=== PATIENT | male | born 1955 | race Caucasian/White ===

== ENCOUNTER 2017-08-13 06:53 | Day surgery (SDC) | payer BC ==
[~2017-08-13 06:53] MED LIST: Lactated Ringers 1,000 ML IV SCH; Lidocaine 1%/Sod Bicarbonate in NS 8.4% 1 ML Syringe IDERM PRN; Sodium Chloride 0.9% 10 ML Syringe FLUSH PRN
[2017-08-13] MEDS ORDERED: fentaNYL 100 MCG/2 ML SDV ONE (07:13)
[2017-08-13] MEDS ORDERED: Lidocaine 1% 4 ML ONE (07:13)
[2017-08-13] MEDS ORDERED: Propofol 200 MG/20 ML SDV ONE (07:13)
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
[2017-08-13] MEDS ORDERED: Ondansetron 4 MG/2 ML SDV ONE (08:18)
--- NOTE | 2017-08-13 08:33 | PCM.OPNOTE ---
- General Post-Op/Procedure Note Date of Surgery/Procedure: 08/13/17 Operative Procedure(s): Colonoscopy with ileal and colonic biopsies Findings: Nonspecific colitis with loss of mucosal integrity in the left colon and rectum. Grossly normal terminal ileum Pre Op Diagnosis: Chronic diarrhea Post-Op Diagnosis: 1. Nonspecific endoscopic colitis. 2. Anal tags. 3. Uncomplicated internal hemorrhoids Anesthesia Technique: MAC, Moderate Sedation Primary Surgeon: Benja Lala Pathology: Biopsies of the ileum, right colon, transverse colon, descending colon, sigmoid colon, and rectum. EBL in mLs: 0 Complications: None Condition: Good Free Text/Narrative:: After adequate IV sedation and analgesia was obtained with monitoring the patient was placed on his left side. Perianal inspection revealed an anal tag with internal hemorrhoids which were not prolapsed or complicated. A lubricated colonoscope was inserted into the rectum and advanced to the cecum without difficulty. The bowel preparation was adequate. The scope was introduced into the terminal ileum for about 20 cm. This structure looked normal. But given his history I took random biopsies for histopathologic evaluation. The cecum was grossly normal. There may have been some loss of mucosal integrity of the right colon and I biopsied this area as well. Similarly there were areas of mild mucosal edema in the transverse descending and sigmoid colons. This finding is consistent with mild colitis. There were no exudates, membranes, ulcers fissures or mass lesions throughout the entire examination.. The transverse descending and rectum were biopsied. The hemorrhoids were seen in the retroflexed view. Photographs were taken for the patient and the medical record.
[2017-08-13 10:37] VITALS: BP 155/82
--- NOTE | 2017-08-13 10:37 | PCM48HPAN ---
Post Anesthesia Note - EVALUATION WITHIN 48HRS OF ANESTHETIC Vital Signs in Normal Range: Yes Patient Participated in Evaluation: Yes Respiratory Function Stable: Yes Airway Patent: Yes Cardiovascular Function Stable: Yes Hydration Status Stable: Yes Pain Control Satisfactory: Yes Nausea and Vomiting Control Satisfactory: Yes Mental Status Recovered: Yes Pulse Rate: 65 Resp Rate: 16 Temperature: 36.6 C Blood Pressure: 155/82
== END 2017-08-13 08:54 | disposition home or self-care (01) ==
LOC: JD.SDS 06:53
PROVIDERS: ATTEND Surgery
DX: K52.832 Lymphocytic colitis (principal); K62.89 Other specified diseases of anus and rectum; K64.8 Other hemorrhoids; K64.4 Residual hemorrhoidal skin tags; Z88.0 Allergy status to penicillin; J30.1 Allergic rhinitis due to pollen
CPT/HCPCS: 45380; J2405; J3010; J7120; 00811; J2001; J2704

== ENCOUNTER 2017-11-03 11:03 | Emergency (ER) | payer BC ==
[2017-11-03 11:12] VITALS: BP 168/85
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
--- NOTE | 2017-11-03 12:05 | CR ---
Right wrist: Four views of the right wrist were obtained. Comparison: No prior wrist exam. Joint spaces are preserved. No fracture, dislocation or other bony abnormality is seen. Impression: 1. No abnormality is appreciated on right wrist exam. Diagnostic code #1
== END 2017-11-03 11:45 | disposition home or self-care (01) ==
LOC: JD.ED 11:03
DX: S63.501A Unspecified sprain of right wrist, initial encounter (principal); E78.00 Pure hypercholesterolemia, unspecified; Z88.0 Allergy status to penicillin; Z91.048 Other nonmedicinal substance allergy status; Z79.899 Other long term (current) drug therapy; V86.99XA Unspecified occupant of other special all-terrain or other off-road motor vehicle injured in nontraffic accident, initial encounter
CPT/HCPCS: 73110-26-RT; 73110-RT; 99283; 99284

== ENCOUNTER 2018-09-03 16:51 | Emergency (ER) | payer BC ==
[2018-09-03] MEDS ORDERED: Sodium Chloride 0.9% 10 ML Syringe FLUSH PRN (17:15)
[2018-09-03] MEDS ORDERED: Metoprolol Tartrate 50 MG Tab PO ONE (17:38)
[2018-09-03 18:54] VITALS: BP 154/81
--- NOTE | 2018-09-03 20:27 | EDM.PDOC ---
ED HPI GENERAL MEDICAL PROBLEM - General Chief Complaint: Chest Pain Stated Complaint: HIGH BLOOD PRESSURE,VISION ISSUE,CHEST PAIN Time Seen by Provider: 09/03/18 17:05 Source of Information: Reports: Patient, RN Notes Reviewed - History of Present Illness INITIAL COMMENTS - FREE TEXT/NARRATIVE: 62-year-old male has been having more frequent episodes of chest pain the past few days. She has been getting chest discomfort intermittently for several weeks or more, had about a 2-1/2 hour episode of anterior chest achiness and tightness at work this afternoon prior to coming in. Take a 325 mg Karen aspirin at work prior to coming and now the pain is gone he did not get short of breath with that. He has not been ill with cough fever or chills. He does have history of recently diagnosed hypertension and hyperlipidemia. He was just started on a statin this past week. He was started on hydrochlorothiazide 12.5 mg daily yesterday. No abdominal pain nausea or vomiting. States there was a burning discomfort anterior chest as well but "I never get heartburn". He did smoke many years ago. There is some history of heart disease in his family.. Chest Pain Score (Numeric/FACES): 2 - Related Data Allergies Allergy/AdvReac Type Severity Reaction Status Date / Time Penicillins Allergy Rash Verified 09/03/18 17:03 pollen extracts Allergy Cannot Verified 09/03/18 17:03 Remember Home Meds: Home Meds Fish Oil/[place]-3 Fatty Acids [Fish Oil 1,000 MG] 1 cap PO DAILY 08/12/17 [ History] Multivitamin [Multivitamins] 1 cap PO DAILY 08/12/17 [History] Metoprolol Tartrate 50 mg PO BID #60 tablet 09/03/18 [Rx] hydroCHLOROthiazide [Hydrochlorothiazide] 12.5 mg PO DAILY 09/03/18 [History] Past Medical History Cardiovascular History: Reports: High Cholesterol, Hypertension - Infectious Disease History Infectious Disease History: Reports: Chicken Pox, Mumps - Past Surgical History HEENT Surgical History: Reports: LASIK Other HEENT Surgeries/Procedures: L eye GI Surgical History: Reports: Appendectomy, Cholecystectomy Musculoskeletal Surgical History: Reports: Other (See Below) Other Musculoskeletal Surgeries/Procedures:: marta higgins Social & Family History - Family History Family Medical History: Noncontributory - Tobacco Use Smoking Status *Q: Former Smoker Used Tobacco, but Quit: Yes Month/Year Tobacco Last Used: 2010 - Caffeine Use Caffeine Use: Reports: Coffee - Recreational Drug Use Recreational Drug Use: No ED ROS GENERAL - Review of Systems Review Of Systems: See Below Constitutional: Denies: Fever, Chills, Diaphoresis HEENT: Denies: Sinus Problem, Throat Pain Respiratory: Denies: Shortness of Breath, Wheezing, Pleuritic Chest Pain Cardiovascular: Reports: Chest Pain (Now gone) GI/Abdominal: Denies: Abdominal Pain, Nausea, Vomiting Musculoskeletal: Denies: Neck Pain, Shoulder Pain, Arm Pain, Back Pain Skin: Reports: No Symptoms Neurological: Reports: No Symptoms ED EXAM, GENERAL - Physical Exam Exam: See Below General Appearance: Alert, No Apparent Distress Throat/Mouth: Normal Inspection Head: Atraumatic Neck: Supple Respiratory/Chest: No Respiratory Distress, Lungs Clear, Normal Breath Sounds, Chest Non-Tender Cardiovascular: Regular Rate, Rhythm GI/Abdominal: Soft, Non-Tender Extremities: Normal Inspection. No: Pedal Edema, Leg Pain, Increased Warmth, Redness Neurological: Alert, Oriented, No Motor/Sensory Deficits Skin Exam: Warm, Dry, Normal Color EKG INTERPRETATION EKG Date: 09/03/18 Rhythm: NSR Gordon: Normal P-Wave: Present QRS: Normal ST-T: Normal Course - Vital Signs Last Recorded V/S: Last Vital Signs Temp 96.6 F 09/03/18 16:58 Pulse 71 09/03/18 18:54 Resp 16 09/03/18 18:54 BP 154/81 H 09/03/18 18:54 Pulse Ox 96 09/03/18 18:54 - Orders/Labs/Meds Labs: Laboratory Tests 09/03/18 09/03/18 09/03/18 Range/Units 17:10 17:10 19:23 WBC 8.71 (4.23-9.07) K/mm3 RBC 5.05 (4.63-6.08) M/mm3 Hgb 15.2 (13.7-17.5) gm/L Hct 41.4 (40.1-51.0) % MCV 82.0 (79.0-92.2) fl MCH 30.1 (25.7-32.2) pg MCHC 36.7 H (32.2-35.5) g/dl RDW Std Deviation 38.5 (35.1-43.9) fL Plt Count 298 (163-337) K/mm3 MPV 10.5 (9.4-12.3) fl Neut % (Auto) 59.2 (34.0-67.9) % Lymph % (Auto) 27.4 (21.8-53.1) % [place] % (Auto) 9.8 (5.3-12.2) % Eos % (Auto) 2.6 (0.8-7.0) Baso % (Auto) 0.7 (0.1-1.2) % Neut # (Auto) 5.15 (1.78-5.38) K/mm3 Lymph # (Auto) 2.39 (1.32-3.57) K/mm3 [place] # (Auto) 0.85 H (0.30-0.82) K/mm3 Eos # (Auto) 0.23 (0.04-0.54) K/mm3 Baso # (Auto) 0.06 (0.01-0.08) K/mm3 Sodium 137 (136-145) mEq/L Potassium 3.7 (3.5-5.1) mEq/L Chloride 98 (98-107) mEq/L Carbon Dioxide 25 (21-32) mEq/L Anion Gap 17.7 H (5-15) BUN 14 (7-18) mg/dL Creatinine 1.0 (0.7-1.3) mg/dL Est Cr Clr Drug Dosing 81.91 mL/min Estimated GFR (MDRD) > 60 (>60) mL/min BUN/Creatinine Ratio 14.0 (14-18) Glucose 99 (80-115) mg/dL Calcium 9.3 (8.5-10.1) mg/dL Total Bilirubin 1.0 (0.2-1.0) mg/dL AST 26 (15-37) U/L ALT 66 H (16-63) U/L Alkaline Phosphatase 64 (46-116) U/L Troponin I < 0.017 < 0.017 (0.00-0.056) ng/mL Total Protein 8.0 (6.4-8.2) g/dl Albumin 4.5 (3.4-5.0) g/dl Globulin 3.5 gm/dL Albumin/Globulin Ratio 1.3 (1-2) Meds: Medications Discontinued Medications Generic Name Dose Route Start Last Admin Trade Name Claudia PRN Reason Stop Dose Admin Metoprolol Tartrate 50 mg 09/03/18 17:38 09/03/18 17:45 Lopressor PO 09/03/18 17:39 50 mg ONETIME ONE Administration Sodium Chloride 10 ml 09/03/18 17:15 09/03/18 17:18 Saline Flush FLUSH 10 ml ASDIRECTED PRN Administration Keep Vein Open - Re-Assessments/Exams Free Text/Narrative Re-Assessment/Exam: 09/05/18 07:32 Initial troponin was normal, chest x-ray other labs normal as well. Repeat troponin also did come back normal. His pressure did come down to the 150 range systolic after metoprolol 50 mg orally. I'm going to start him on metoprolol 50 mg twice a day in addition to the hydrochlorothiazide 12.5 started yesterday. He weighs 113 kg, he should be able to tolerate that. Eyes him to check his blood pressure and heart rate about twice daily, cutback in dosage if he does start running too low or having episodes of "too much dizziness". Also have scheduled him for cardiac stress test. He has been in sinus rhythm the whole time here in the ED with no ectopy. He is comfortable and agreeable with this plan. Discharge instructions as documented. Departure - Departure Time of Disposition: 20:25 Disposition: Home, Self-Care 01 Condition: Fair Clinical Impression: Atypical chest pain Hypertension Qualifiers: Hypertension type: essential hypertension Qualified Code(s): I10 - Essential ( primary) hypertension Prescriptions: Metoprolol Tartrate 50 mg PO BID #60 tablet Instructions: Nonspecific Chest Pain, [id number], Hypertension Referrals: Kristina Araujo PA-C [Primary Care Provider] - Forms: ED Department Discharge Additional Instructions: Take daily aspirin, either to 81 mg baby aspirin daily or 1 325 mg Karen aspirin daily. Continue the hydrochlorothiazide and statin medication previously prescribed. Metoprolol 50 mg twice a day for hypertension and also for accelerated chest pains. Cardiac stress test. Radiology will call you in the morning for a time to get that done. Follow-up with Kristina as needed. Continue to monitor your heart rate and blood pressure and keep a record for your medical providers. Return to ED as needed if symptoms worsening in any way.
--- NOTE | 2018-09-04 06:46 | CR ---
Chest: Portable view of the chest was obtained. Comparison: Prior chest x-ray of 08/25/18. Heart size and mediastinum are within normal limits. Lungs are clear with no acute parenchymal change. Bony structures are grossly intact. Impression: 1. Nothing acute is seen on portable chest x-ray. Diagnostic code #1
== END 2018-09-03 20:45 | disposition home or self-care (01) ==
LOC: JD.ED 16:51
DX: R07.89 Other chest pain (principal); E78.00 Pure hypercholesterolemia, unspecified; I10 Essential (primary) hypertension; Z87.891 Personal history of nicotine dependence; Z88.0 Allergy status to penicillin; Z79.899 Other long term (current) drug therapy
CPT/HCPCS: 36415; 71045; 80053; 84484; 85025; 93005; 99285; A9270; 93010; 99284

== ENCOUNTER 2020-03-25 02:16 | Emergency (ER) | payer MEDICARE, OTHER ==
[2020-03-25 02:28] VITALS: BP 182/70; PULSE 106
--- NOTE | 2020-03-25 02:43 | EDM.PDOC ---
ED HPI GENERAL MEDICAL PROBLEM - General Chief Complaint: Respiratory Problem Stated Complaint: SOB/CHEST CONGESTION Time Seen by Provider: 03/25/20 02:33 - History of Present Illness INITIAL COMMENTS - FREE TEXT/NARRATIVE: 64-year-old male presents the emergency room with shortness of breath. Patient has had on and off shortness of breath for the last couple of weeks. He is also had a lot of nasal congestion. Tonight his shortness of breath really got bad over the last 6 hours. Patient denies any chest pain, however he said some pressure. Patient is not aware of any sick exposures. He has not had any nausea vomiting or diarrhea. - Related Data Allergies Allergy/AdvReac Type Severity Reaction Status Date / Time Penicillins Allergy Rash Verified 03/25/20 02:28 pollen extracts Allergy Cannot Verified 03/25/20 02:28 Remember Home Meds: Home Meds Fish Oil/[place]-3 Fatty Acids [Fish Oil 1,000 MG] 1 cap PO DAILY 08/12/17 [History] Multivitamin [Multivitamins] 1 cap PO DAILY 08/12/17 [History] Metoprolol Tartrate 50 mg PO BID #60 tablet 09/03/18 [Rx] hydroCHLOROthiazide [Hydrochlorothiazide] 12.5 mg PO DAILY 09/03/18 [History] Past Medical History Cardiovascular History: Reports: High Cholesterol, Hypertension - Infectious Disease History Infectious Disease History: Reports: Chicken Pox, Mumps - Past Surgical History HEENT Surgical History: Reports: LASIK Other HEENT Surgeries/Procedures: L eye GI Surgical History: Reports: Appendectomy, Cholecystectomy Musculoskeletal Surgical History: Reports: Other (See Below) Other Musculoskeletal Surgeries/Procedures:: marta higgins Social & Family History - Family History Family Medical History: Noncontributory - Caffeine Use Caffeine Use: Reports: Coffee ED ROS GENERAL - Review of Systems Review Of Systems: See Below Constitutional: Reports: No Symptoms HEENT: Reports: Rhinitis, Sinus Problem Respiratory: Reports: Shortness of Breath, Cough Cardiovascular: Reports: No Symptoms GI/Abdominal: Reports: No Symptoms : Reports: No Symptoms Musculoskeletal: Reports: No Symptoms Skin: Reports: No Symptoms Neurological: Reports: No Symptoms ED EXAM, GENERAL - Physical Exam Exam: See Below Exam Limited By: No Limitations General Appearance: Alert, No Apparent Distress Eye Exam: Bilateral Eye: Normal Inspection, PERRL Ears: Normal External Exam, Normal Canal, Hearing Grossly Normal, Normal TMs Nose: No Blood, Clear Rhinorrhea Throat/Mouth: Normal Inspection, Normal Lips, Normal Teeth, Normal Gums, Normal Oropharynx, Normal Voice, No Airway Compromise Head: Atraumatic, Normocephalic Neck: Normal Inspection, Supple, Non-Tender, Full Range of Motion. No: Lymphadenopathy (L), Lymphadenopathy (R) Respiratory/Chest: No Respiratory Distress, Lungs Clear, Normal Breath Sounds Cardiovascular: Regular Rate, Rhythm, No Edema, No Murmur GI/Abdominal: Normal Bowel Sounds, Soft, Non-Tender Course - Vital Signs Last Recorded V/S: Last Vital Signs Temp 35.9 C L 03/25/20 02:24 Pulse 106 H 03/25/20 02:24 Resp 20 03/25/20 02:24 BP 182/70 H 03/25/20 02:24 Pulse Ox 87 L 03/25/20 02:24 - Orders/Labs/Meds Orders: Active Orders 24 hr Category Date Time Status EKG 12 Lead [EKG Documentation Completion] [RC] STAT Care 03/25/20 02:39 Active Chest 1V Frontal [CR] Stat Exams 03/25/20 02:51 Taken Labs: Laboratory Tests 03/25/20 03/25/20 03/25/20 Range/Units 02:30 02:30 02:30 WBC 5.36 (4.23-9.07) K/mm3 RBC 5.06 (4.63-6.08) M/mm3 Hgb 14.9 (13.7-17.5) gm/dl Hct 42.9 (40.1-51.0) % MCV 84.8 (79.0-92.2) fl MCH 29.4 (25.7-32.2) pg MCHC 34.7 (32.2-35.5) g/dl RDW Std Deviation 42.2 (35.1-43.9) fL Plt Count 335 (163-337) K/mm3 MPV 10.4 (9.4-12.3) fl Neutrophils % (Manual) 29 L (40-60) % Band Neutrophils % 0 (0-10) % Lymphocytes % (Manual) 61 H (20-40) % Atypical Lymphs % 0 % Monocytes % (Manual) 6 (2-10) % Eosinophils % (Manual) 4 (0.8-7.0) % Basophils % (Manual) 0 L (0.2-1.2) Platelet Estimate Adequate Plt Morphology Comment Normal RBC Morph Comment Normal PT 11.1 (9.7-11.7) SECONDS INR 1.04 APTT 23 (22-31) SECONDS D-Dimer, Quantitative 0.39 (0.19-0.50) mg/L Sodium 143 (136-145) mEq/L Potassium 3.7 (3.5-5.1) mEq/L Chloride 104 (98-107) mEq/L Carbon Dioxide 28 (21-32) mEq/L Anion Gap 14.7 (5-15) BUN 15 (7-18) mg/dL Creatinine 1.2 (0.7-1.3) mg/dL Est Cr Clr Drug Dosing 66.46 mL/min Estimated GFR (MDRD) > 60 (>60) mL/min BUN/Creatinine Ratio 12.5 L (14-18) Glucose 135 H (80-115) mg/dL Calcium 8.1 L (8.5-10.1) mg/dL Ferritin (26-388) ng/ml Total Bilirubin 0.7 (0.2-1.0) mg/dL AST 26 (15-37) U/L ALT 59 (16-63) U/L Alkaline Phosphatase 59 (46-116) U/L Lactate Dehydrogenase 171 (85-227) U/L Troponin I (0.00-0.056) ng/mL C-Reactive Protein 0.5 (<1.0) mg/dL Total Protein 7.2 (6.4-8.2) g/dl Albumin 3.9 (3.4-5.0) g/dl Globulin 3.3 gm/dL Albumin/Globulin Ratio 1.2 (1-2) SARS-CoV-2 RNA (IRINA) (NEGATIVE) 03/25/20 03/25/20 03/25/20 Range/Units 02:30 02:30 03:15 WBC (4.23-9.07) K/mm3 RBC (4.63-6.08) M/mm3 Hgb (13.7-17.5) gm/dl Hct (40.1-51.0) % MCV (79.0-92.2) fl MCH (25.7-32.2) pg MCHC (32.2-35.5) g/dl RDW Std Deviation (35.1-43.9) fL Plt Count (163-337) K/mm3 MPV (9.4-12.3) fl Neutrophils % (Manual) (40-60) % Band Neutrophils % (0-10) % Lymphocytes % (Manual) (20-40) % Atypical Lymphs % % Monocytes % (Manual) (2-10) % Eosinophils % (Manual) (0.8-7.0) % Basophils % (Manual) (0.2-1.2) Platelet Estimate Plt Morphology Comment RBC Morph Comment PT (9.7-11.7) SECONDS INR APTT (22-31) SECONDS D-Dimer, Quantitative (0.19-0.50) mg/L Sodium (136-145) mEq/L Potassium (3.5-5.1) mEq/L Chloride (98-107) mEq/L Carbon Dioxide (21-32) mEq/L Anion Gap (5-15) BUN (7-18) mg/dL Creatinine (0.7-1.3) mg/dL Est Cr Clr Drug Dosing mL/min Estimated GFR (MDRD) (>60) mL/min BUN/Creatinine Ratio (14-18) Glucose (80-115) mg/dL Calcium (8.5-10.1) mg/dL Ferritin 379 (26-388) ng/ml Total Bilirubin (0.2-1.0) mg/dL AST (15-37) U/L ALT (16-63) U/L Alkaline Phosphatase (46-116) U/L Lactate Dehydrogenase (85-227) U/L Troponin I < 0.017 (0.00-0.056) ng/mL C-Reactive Protein (<1.0) mg/dL Total Protein (6.4-8.2) g/dl Albumin (3.4-5.0) g/dl Globulin gm/dL Albumin/Globulin Ratio (1-2) SARS-CoV-2 RNA (IRINA) Negative (NEGATIVE) Meds: Medications Discontinued Medications Generic Name Dose Route Start Last Admin Trade Name Freq PRN Reason Stop Dose Admin Sodium Chloride 0.001 ml 03/25/20 02:49 03/25/20 02:58 [place] Nasal [place] RUDY 03/25/20 02:50 0.001 ml ONETIME ONE Administration - Re-Assessments/Exams Free Text/Narrative Re-Assessment/Exam: 03/25/20 05:00 The patient does fairly well if he breathes through his mouth. His nose is just really congested we have tried some saline mist in his nose this helped a little bit but really not getting his nose opened up. His O2 saturation on room air will drop into the 89-90 if he makes himself breathe through his mouth it goes up to the mid 90s without difficulty. Labs are unrevealing chest x-ray unr evealing. It seems as though most of his problems are related to just significant nasal congestion and him being somewhat of an obligate nose breather. We discussed saline irrigation techniques. He will give this a try. Departure - Departure Time of Disposition: 05:01 Disposition: Home, Self-Care 01 Clinical Impression: Nasal congestion - Discharge Information Referrals: Kristina Araujo PA-C [Primary Care Provider] - Forms: ED Department Discharge Additional Instructions: Return to the emergency room with any questions problems or worsening symptoms. 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 Follow-up in the clinic early this week if needed. Sepsis Event Note (ED) - Evaluation Sepsis Screening Result: No Definite Risk - Focused Exam Vital Signs: Vital Signs Temp Pulse Resp BP Pulse Ox 03/25/20 02:24 35.9 C L 106 H 20 182/70 H 87 L - My Orders Last 24 Hours: My Active Orders 03/25/20 02:39 EKG 12 Lead [EKG Documentation Completion] [RC] STAT 03/25/20 02:51 Chest 1V Frontal [CR] Stat - Assessment/Plan Last 24 Hours: My Active Orders 03/25/20 02:39 EKG 12 Lead [EKG Documentation Completion] [RC] STAT 03/25/20 02:51 Chest 1V Frontal [CR] Stat
[2020-03-25] MEDS ORDERED: Sodium Chloride 0.65% Nasal Spray 45 ML Bottle NAS ONE (02:49)
== END 2020-03-25 05:13 | disposition home or self-care (01) ==
LOC: JD.ED 02:16
DX: R09.81 Nasal congestion (principal); I10 Essential (primary) hypertension; Z20.828 Contact with and (suspected) exposure to other viral communicable diseases; Z88.0 Allergy status to penicillin; Z79.899 Other long term (current) drug therapy; Z91.018 Allergy to other foods
CPT/HCPCS: 36415; 71045; 80053; 82728; 83615; 84484; 85007; 85027; 85379; 85610; 85730; 86140; 93005; 99285; U0002

== ENCOUNTER 2020-09-02 11:09 | Observation (INO) | payer MEDICARE, OTHER ==
[2020-09-02 12:10] LABS: CORONAVIRUS COVID-19 NAA NEGATIVE (NEGATIVE)
[2020-09-02] MEDS ORDERED: methylPREDNISolone Sodium Succinate 125 MG/2 ML SDV IVPUSH ONE (12:52)
--- NOTE | 2020-09-02 12:52 | EDM.PDOC ---
ED HPI GENERAL MEDICAL PROBLEM - General Chief Complaint: Respiratory Problem Stated Complaint: SOB Time Seen by Provider: 09/02/20 11:17 Source of Information: Reports: Patient History Limitations: Reports: No Limitations - History of Present Illness INITIAL COMMENTS - FREE TEXT/NARRATIVE: The patient has come in with shortness of breath. For the past week he has been waking up in the morning feeling just fine but during the course of each day he has had increasing shortness of breath. He says he goes to bed early because he feels fatigued but then wakes up the following morning feeling just fine to repeat the trajectory of the day ending up feeling short of breath and fatigued. Today he finally came in as she says he felt worse than he had on previous days. Incidentally the patient's had been trying to persuade him to come to the hospital repeatedly over the past week or so. The patient is a former smoker having quit some 8 or 10 years ago. He is not aware of any heart problems, no GA, says he has high blood pressure but does not take any medication for it and feels that his blood pressure is adequately managed without drugs. There is been no evaluation or treatment prior to the arrival today. To summarize, the patient has come to the hospital with shortness of breath. There is been no chest pain. No fever. No cough, no syncope sweating or other strictly cardiological related issues or infectious issues. Headache Pain Score (Numeric/FACES): 7 - Related Data Allergies Allergy/AdvReac Type Severity Reaction Status Date / Time Penicillins Allergy Severe Rash Verified 09/02/20 11:23 pollen extracts Allergy Severe Cannot Verified 09/02/20 11:23 Remember Home Meds: Home Meds Fish Oil/[place]-3 Fatty Acids [Fish Oil 1,000 MG] 1 cap PO DAILY 08/12/17 [History] Multivitamin [Multivitamins] 1 cap PO DAILY 08/12/17 [History] ALPRAZolam [Alprazolam] 0.5 mg PO BID PRN 09/02/20 [History] Celecoxib [CeleBREX] 2 cap PO DAILY 09/02/20 [History] Fluticasone Propionate [Flonase] 2 spray RUDY DAILY PRN 09/02/20 [History] Past Medical History Cardiovascular History: Reports: High Cholesterol, Hypertension - Infectious Disease History Infectious Disease History: Reports: Chicken Pox, Mumps - Past Surgical History HEENT Surgical History: Reports: LASIK Other HEENT Surgeries/Procedures: L eye GI Surgical History: Reports: Appendectomy, Cholecystectomy Musculoskeletal Surgical History: Reports: Other (See Below) Other Musculoskeletal Surgeries/Procedures:: marta higgins Social & Family History - Family History Family Medical History: No Pertinent Family History - Tobacco Use Tobacco Use Status *Q: Former Tobacco User Used Tobacco, but Quit: Yes Month/Year Tobacco Last Used: 2007 - Caffeine Use Caffeine Use: Reports: Coffee - Recreational Drug Use Recreational Drug Use: No ED ROS GENERAL - Review of Systems Review Of Systems: Comprehensive ROS is negative, except as noted in HPI. ED EXAM, GENERAL - Physical Exam Exam: See Below Course - Vital Signs Text/Narrative:: The findings have been summarized for the patient and his . Arterial blood gas shows hypoxemia even on oxygen. There is no evidence of an infectious process. No focal infiltrate on chest x-ray. No elevated white count. This undoubtedly represents exacerbation of COPD. It is recommended the patient come into the hospital for further management and he readily agrees. He is receiving 125 mg of Solu-Medrol IV in the emergency department. He has been cultured but this does not seem to be an indication for antibiotics at the present time. There is no evidence of congestive heart failure or an acute cardiological event. Also there seems to be no indication of a lower respiratory tract infection. Discussed with Dr. Farr, hospitalist broadcast operations manager and patient will be admitted in observation status. Last Recorded V/S: Last Vital Signs Temp 36.3 C 09/02/20 11:15 Pulse 103 H 09/02/20 11:15 Resp 22 H 09/02/20 11:15 BP 150/83 H 09/02/20 11:15 Pulse Ox 95 09/02/20 13:04 - Orders/Labs/Meds Orders: Active Orders 24 hr Category Date Time Status ABG [RT Arterial Blood Gases, ABG] [RC] Click to Edit Care 09/02/20 11:24 Active EKG Documentation Completion [RC] STAT Care 09/02/20 11:22 Active Oxygen Therapy, ED [RC] ASDIRECTED Care 09/02/20 11:22 Active Chest 1V Frontal [CR] Stat Exams 09/02/20 11:22 Taken CULTURE BLOOD [BC] Stat Lab 09/02/20 11:53 Received CULTURE BLOOD [BC] Stat Lab 09/02/20 12:01 Received Blood Culture x2 Reflex Set [OM.PC] Stat Oth 09/02/20 11:22 Ordered Labs: Laboratory Tests 09/02/20 09/02/20 09/02/20 Range/Units 11:25 11:40 11:53 WBC 6.82 (4.23-9.07) K/mm3 RBC 5.16 (4.63-6.08) M/mm3 Hgb 15.2 (13.7-17.5) gm/dl Hct 43.1 (40.1-51.0) % MCV 83.5 (79.0-92.2) fl MCH 29.5 (25.7-32.2) pg MCHC 35.3 (32.2-35.5) g/dl RDW Std Deviation 41.1 (35.1-43.9) fL Plt Count 308 (163-337) K/mm3 MPV 10.0 (9.4-12.3) fl Neutrophils % (Manual) 54 (40-60) % Band Neutrophils % 0 (0-10) % Lymphocytes % (Manual) 39 (20-40) % Atypical Lymphs % 0 % Immat Monocytes % (Man) 0 Monocytes % (Manual) 7 (2-10) % Eosinophils % (Manual) 0 L (0.8-7.0) % Basophils % (Manual) 0 L (0.2-1.2) Metamyelocytes % 0 Myelocytes % 0 Promyelocytes % 0 Blast Cells % 0 Plasma Cell % (Manual) 0 Nucleated RBCs 0.0 % Platelet Estimate Adequate RBC Morph Comment Normal PT (9.7-12.0) SECONDS INR D-Dimer, Quantitative (0.19-0.50) mg/L Puncture Site Lt radial ABG pH 7.37 (7.35-7.45) ABG pCO2 42.0 (35.0-45.0) mmHg ABG pO2 64.0 L (80.0-100.0) mmHg ABG HCO3 23.7 (22.0-26.0) meq/L ABG O2 Saturation 90.2 L (96.0-97.0) % ABG Base Excess -1.1 (-2-2.0) A-a Gradient 111 mmHg O2 Delivery Device Nasal cannula Oxygen Flow Rate 3.0 FiO2 32.00 (21.00-100.00) % Blood Gas Comments P Sodium (136-145) mEq/L Potassium (3.5-5.1) mEq/L Chloride (98-107) mEq/L Carbon Dioxide (21-32) mEq/L Anion Gap (5-15) BUN (7-18) mg/dL Creatinine (0.7-1.3) mg/dL Est Cr Clr Drug Dosing mL/min Estimated GFR (MDRD) (>60) mL/min BUN/Creatinine Ratio (14-18) Glucose (80-115) mg/dL Calcium (8.5-10.1) mg/dL Magnesium (1.8-2.4) mg/dl Total Bilirubin (0.2-1.0) mg/dL AST (15-37) U/L ALT (16-63) U/L Alkaline Phosphatase (46-116) U/L Troponin I (0.00-0.056) ng/mL NT-Pro-B Natriuret Pep (0-125) pg/mL Total Protein (6.4-8.2) g/dl Albumin (3.4-5.0) g/dl Globulin gm/dL Albumin/Globulin Ratio (1-2) Lipase (73-393) U/L Urine Color (Yellow) Urine Appearance (Clear) Urine pH (5.0-8.0) Ur Specific [place] (1.005-1.030) Urine Protein (Negative) Urine Glucose (UA) (Negative) Urine Ketones (Negative) Urine Occult Blood (Negative) Urine Nitrite (Negative) Urine Bilirubin (Negative) Urine Urobilinogen (0.2-1.0) Ur Leukocyte Esterase (Negative) U Hyaline Cast (Auto) (0-5) /lpf Urine RBC (0-5) /hpf Urine WBC (0-5) /hpf Ur Squamous Epith Cells (0-5) /hpf Urine Bacteria (FEW) /hpf Urine Mucus (FEW) /hpf Influenza Type A RNA Negative (NEGATIVE) Influenza Type B RNA Negative (NEGATIVE) SARS-CoV-2 RNA (IRINA) Negative (NEGATIVE) 09/02/20 09/02/20 09/02/20 Range/Units 11:53 11:53 11:53 WBC (4.23-9.07) K/mm3 RBC (4.63-6.08) M/mm3 Hgb (13.7-17.5) gm/dl Hct (40.1-51.0) % MCV (79.0-92.2) fl MCH (25.7-32.2) pg MCHC (32.2-35.5) g/dl RDW Std Deviation (35.1-43.9) fL Plt Count (163-337) K/mm3 MPV (9.4-12.3) fl Neutrophils % (Manual) (40-60) % Band Neutrophils % (0-10) % Lymphocytes % (Manual) (20-40) % Atypical Lymphs % % Immat Monocytes % (Man) Monocytes % (Manual) (2-10) % Eosinophils % (Manual) (0.8-7.0) % Basophils % (Manual) (0.2-1.2) Metamyelocytes % Myelocytes % Promyelocytes % Blast Cells % Plasma Cell % (Manual) Nucleated RBCs % Platelet Estimate RBC Morph Comment PT 11.4 (9.7-12.0) SECONDS INR 1.07 D-Dimer, Quantitative 0.63 H (0.19-0.50) mg/L Puncture Site ABG pH (7.35-7.45) ABG pCO2 (35.0-45.0) mmHg ABG pO2 (80.0-100.0) mmHg ABG HCO3 (22.0-26.0) meq/L ABG O2 Saturation (96.0-97.0) % ABG Base Excess (-2-2.0) A-a Gradient mmHg O2 Delivery Device Oxygen Flow Rate FiO2 (21.00-100.00) % Blood Gas Comments Sodium 140 (136-145) mEq/L Potassium 3.7 (3.5-5.1) mEq/L Chloride 102 (98-107) mEq/L Carbon Dioxide 26 (21-32) mEq/L Anion Gap 15.7 H (5-15) BUN 18 (7-18) mg/dL Creatinine 0.9 (0.7-1.3) mg/dL Est Cr Clr Drug Dosing 88.62 mL/min Estimated GFR (MDRD) > 60 (>60) mL/min BUN/Creatinine Ratio 20.0 H (14-18) Glucose 116 H (80-115) mg/dL Calcium 8.6 (8.5-10.1) mg/dL Magnesium 1.7 L (1.8-2.4) mg/dl Total Bilirubin 0.1 L (0.2-1.0) mg/dL AST 24 (15-37) U/L ALT 54 (16-63) U/L Alkaline Phosphatase 49 (46-116) U/L Troponin I < 0.017 (0.00-0.056) ng/mL NT-Pro-B Natriuret Pep (0-125) pg/mL Total Protein 7.6 (6.4-8.2) g/dl Albumin 4.3 (3.4-5.0) g/dl Globulin 3.3 gm/dL Albumin/Globulin Ratio 1.3 (1-2) Lipase 216 (73-393) U/L Urine Color (Yellow) Urine Appearance (Clear) Urine pH (5.0-8.0) Ur Specific [place] (1.005-1.030) Urine Protein (Negative) Urine Glucose (UA) (Negative) Urine Ketones (Negative) Urine Occult Blood (Negative) Urine Nitrite (Negative) Urine Bilirubin (Negative) Urine Urobilinogen (0.2-1.0) Ur Leukocyte Esterase (Negative) U Hyaline Cast (Auto) (0-5) /lpf Urine RBC (0-5) /hpf Urine WBC (0-5) /hpf Ur Squamous Epith Cells (0-5) /hpf Urine Bacteria (FEW) /hpf Urine Mucus (FEW) /hpf Influenza Type A RNA (NEGATIVE) Influenza Type B RNA (NEGATIVE) SARS-CoV-2 RNA (IRINA) (NEGATIVE) 09/02/20 09/02/20 Range/Units 11:53 12:30 WBC (4.23-9.07) K/mm3 RBC (4.63-6.08) M/mm3 Hgb (13.7-17.5) gm/dl Hct (40.1-51.0) % MCV (79.0-92.2) fl MCH (25.7-32.2) pg MCHC (32.2-35.5) g/dl RDW Std Deviation (35.1-43.9) fL Plt Count (163-337) K/mm3 MPV (9.4-12.3) fl Neutrophils % (Manual) (40-60) % Band Neutrophils % (0-10) % Lymphocytes % (Manual) (20-40) % Atypical Lymphs % % Immat Monocytes % (Man) Monocytes % (Manual) (2-10) % Eosinophils % (Manual) (0.8-7.0) % Basophils % (Manual) (0.2-1.2) Metamyelocytes % Myelocytes % Promyelocytes % Blast Cells % Plasma Cell % (Manual) Nucleated RBCs % Platelet Estimate RBC Morph Comment PT (9.7-12.0) SECONDS INR D-Dimer, Quantitative (0.19-0.50) mg/L Puncture Site ABG pH (7.35-7.45) ABG pCO2 (35.0-45.0) mmHg ABG pO2 (80.0-100.0) mmHg ABG HCO3 (22.0-26.0) meq/L ABG O2 Saturation (96.0-97.0) % ABG Base Excess (-2-2.0) A-a Gradient mmHg O2 Delivery Device Oxygen Flow Rate FiO2 (21.00-100.00) % Blood Gas Comments Sodium (136-145) mEq/L Potassium (3.5-5.1) mEq/L Chloride (98-107) mEq/L Carbon Dioxide (21-32) mEq/L Anion Gap (5-15) BUN (7-18) mg/dL Creatinine (0.7-1.3) mg/dL Est Cr Clr Drug Dosing mL/min Estimated GFR (MDRD) (>60) mL/min BUN/Creatinine Ratio (14-18) Glucose (80-115) mg/dL Calcium (8.5-10.1) mg/dL Magnesium (1.8-2.4) mg/dl Total Bilirubin (0.2-1.0) mg/dL AST (15-37) U/L ALT (16-63) U/L Alkaline Phosphatase (46-116) U/L Troponin I (0.00-0.056) ng/mL NT-Pro-B Natriuret Pep 35 (0-125) pg/mL Total Protein (6.4-8.2) g/dl Albumin (3.4-5.0) g/dl Globulin gm/dL Albumin/Globulin Ratio (1-2) Lipase (73-393) U/L Urine Color Yellow (Yellow) Urine Appearance Clear (Clear) Urine pH 5.5 (5.0-8.0) Ur Specific [place] > or = 1.030 (1.005-1.030) Urine Protein 1+ H (Negative) Urine Glucose (UA) Negative (Negative) Urine Ketones 1+ H (Negative) Urine Occult Blood Negative (Negative) Urine Nitrite Negative (Negative) Urine Bilirubin Negative (Negative) Urine Urobilinogen 0.2 (0.2-1.0) Ur Leukocyte Esterase Negative (Negative) U Hyaline Cast (Auto) 5-10 H (0-5) /lpf Urine RBC Not seen (0-5) /hpf Urine WBC Not seen (0-5) /hpf Ur Squamous Epith Cells 0-5 (0-5) /hpf Urine Bacteria Not seen (FEW) /hpf Urine Mucus Many H (FEW) /hpf Influenza Type A RNA (NEGATIVE) Influenza Type B RNA (NEGATIVE) SARS-CoV-2 RNA (IR[place]) (NEGATIVE) Meds: Medications Discontinued Medications Generic Name Dose Route Start Last Admin Trade Name Freq PRN Reason Stop Dose Admin Methylprednisolone Sodium Succinate 125 mg 09/02/20 12:52 09/02/20 13:04 Methylprednisolone Sodium Succinate 125 Mg/2 Ml Sdv IVPUSH 09/02/20 12:53 125 mg ONETIME ONE Administration Departure - Departure Time of Disposition: 13:44 Disposition: Refer to Observation Condition: Fair Clinical Impression: COPD exacerbation - Discharge Information Sepsis Event Note (ED) - Evaluation Sepsis Screening Result: No Definite Risk - Focused Exam Vital Signs: Vital Signs Temp Pulse Resp BP Pulse Ox Pulse Ox 09/02/20 13:04 95 09/02/20 11:50 91 L 09/02/20 11:22 88 L 09/02/20 11:15 36.3 C 103 H 22 H 150/83 H 86 L - My Orders Last 24 Hours: My Active Orders 09/02/20 11:22 EKG Documentation Completion [RC] STAT Oxygen Therapy, ED [RC] ASDIRECTED Chest 1V Frontal [CR] Stat Blood Culture x2 Reflex Set [OM.PC] Stat 09/02/20 11:24 ABG [RT Arterial Blood Gases, ABG] [RC] Click to Edit 09/02/20 11:53 CULTURE BLOOD [BC] Stat 09/02/20 12:01 CULTURE BLOOD [BC] Stat - Assessment/Plan Last 24 Hours: My Active Orders 09/02/20 11:22 EKG Documentation Completion [RC] STAT Oxygen Therapy, ED [RC] ASDIRECTED Chest 1V Frontal [CR] Stat Blood Culture x2 Reflex Set [OM.PC] Stat 09/02/20 11:24 ABG [RT Arterial Blood Gases, ABG] [RC] Click to Edit 09/02/20 11:53 CULTURE BLOOD [BC] Stat 09/02/20 12:01 CULTURE BLOOD [BC] Stat
[2020-09-02] MEDS ORDERED: Acetaminophen 325 MG Tab PO PRN (13:53)
[2020-09-02] MEDS ORDERED: Acetaminophen/HYDROcodone 325-5 MG Tab PO PRN (13:53)
[2020-09-02] MEDS ORDERED: Albuterol 0.083% 2.5 MG/3 ML Neb Soln NEB PRN (13:55)
[2020-09-02] MEDS ORDERED: Albuterol/Ipratropium 3.0-0.5 MG/3 ML Neb Soln NEB PRN (13:55)
[2020-09-02] MEDS ORDERED: Promethazine 12.5 MG in Sodium Chloride 0.9% 50 ML IV PRN (13:55)
[2020-09-02] MEDS ORDERED: hydrALAZINE 20 MG/ML SDV IVPUSH PRN (14:02)
[2020-09-02] MEDS ORDERED: ALPRAZolam 0.5 MG Tab PO PRN (14:03)
[2020-09-02] MEDS ORDERED: Fluticasone Propionate Nasal Spray 16 GM Bottle NAS PRN (14:03)
--- NOTE | 2020-09-02 14:12 | PCM.HP.2 ---
H&P History of Present Illness - General Date of Service: 09/02/20 Admit Problem/Dx: Admission Diagnosis/Problem Admission Diagnosis/Problem Chronic obstructive pulmonary disease Source of Information: Patient - History of Present Illness Initial Comments - Free Text/Narative: Patient is a 64-year-old male with a history of hypertension and COPD who presented to the ER due to worsening shortness of breath x 5 days. As per patient, she has been having shortness of breath which have been worsening over the past 5 days associated with the mild headache, stuffy nose, runny nose, fatigue and mild dizziness. In the ER, she was found to have mild elevation of D-dimer. But ER doctor Radha did not feel patient has risk for thromboembolic events. CT angio chest did not performed. He was diagnosed with a COPD exacerbation and 1 dose Solu-Medrol 125 mg was given. When I saw this patient in the ER, other than the symptoms mentioned above, he denied chest pain, abdominal pain, nausea, vomiting, fever, chills, or dysuria. Headache Pain Score (Numeric/FACES): 7 - Related Data Allergies/Adverse Reactions: Allergies Allergy/AdvReac Type Severity Reaction Status Date / Time Penicillins Allergy Severe Rash Verified 09/02/20 11:23 pollen extracts Allergy Severe Cannot Verified 09/02/20 11:23 Remember Home Medications: Home Meds Fish Oil/[place]-3 Fatty Acids [Fish Oil 1,000 MG] 1 cap PO DAILY 08/12/17 [History] Multivitamin [Multivitamins] 1 cap PO DAILY 08/12/17 [History] ALPRAZolam [Alprazolam] 0.5 mg PO BID PRN 09/02/20 [History] Celecoxib [CeleBREX] 2 cap PO DAILY 09/02/20 [History] Fluticasone Propionate [Flonase] 2 spray RUDY DAILY PRN 09/02/20 [History] Past Medical History Cardiovascular History: Reports: High Cholesterol, Hypertension - Infectious Disease History Infectious Disease History: Reports: Chicken Pox, Mumps - Past Surgical History HEENT Surgical History: Reports: LASIK Other HEENT Surgeries/Procedures: L eye GI Surgical History: Reports: Appendectomy, Cholecystectomy Musculoskeletal Surgical History: Reports: Other (See Below) Other Musculoskeletal Surgeries/Procedures:: marta higgins Social & Family History - Family History Family Medical History: No Pertinent Family History (Denies genetic diseases in the family) - Tobacco Use Tobacco Use Status *Q: Former Tobacco User Used Tobacco, but Quit: Yes Month/Year Tobacco Last Used: 2007 - Caffeine Use Caffeine Use: Reports: Coffee - Recreational Drug Use Recreational Drug Use: No H&P Review of Systems - Review of Systems: Review Of Systems: See Below General: Reports: Fatigue HEENT: Reports: Headaches, Rhinitis, Sinus Congestion Pulmonary: Reports: Shortness of Breath Cardiovascular: Reports: No Symptoms Gastrointestinal: Reports: No Symptoms Genitourinary: Reports: No Symptoms Musculoskeletal: Reports: No Symptoms Skin: Reports: No Symptoms Psychiatric: Reports: No Symptoms Neurological: Reports: No Symptoms Hematologic/Lymphatic: Reports: No Symptoms Immunologic: Reports: No Symptoms Exam - Exam Exam: See Below - Vital Signs Vital Signs: Last Vital Signs Temp 36.3 C 09/02/20 11:15 Pulse 103 H 09/02/20 11:15 Resp 22 H 09/02/20 11:15 BP 150/83 H 09/02/20 11:15 Pulse Ox 95 09/02/20 13:04 Weight: 115.258 kg - Exam General: Alert, Oriented, Cooperative HEENT: Conjunctiva Clear, EOMI, Pupils Equal, Pupils Reactive Neck: Supple, Trachea Midline Lungs: Decreased Breath Sounds (No crackle, no wheezing) Cardiovascular: Regular Rate, Regular Rhythm, Normal S1, Normal S2 GI/Abdominal Exam: Normal Bowel Sounds, Soft, Non-Tender, No Organomegaly, No Distention Extremities: Normal Inspection, Normal Range of Motion, Non-Tender, No Pedal Edema, Normal Capillary Refill Neurological: Cranial Nerves Intact, Reflexes Equal Bilateral, Strength Equal Bilateral, Normal Speech, Normal Tone, Sensation Intact Neuro Extensive - Mental Status: Alert, Oriented x3, Normal Mood/Affect, Normal Cognition Neuro Extensive - Motor, Sensory, Reflexes: CN II-XII Intact, Normal Reflexes Psychiatric: Alert, Normal Affect, Normal Mood - Patient Data Lab Results Last 24 hrs: Laboratory Results - last 24 hr 09/02/20 09/02/20 09/02/20 Range/Units 11:25 11:40 11:53 WBC 6.82 (4.23-9.07) K/mm3 RBC 5.16 (4.63-6.08) M/mm3 Hgb 15.2 (13.7-17.5) gm/dl Hct 43.1 (40.1-51.0) % MCV 83.5 (79.0-92.2) fl MCH 29.5 (25.7-32.2) pg MCHC 35.3 (32.2-35.5) g/dl RDW Std Deviation 41.1 (35.1-43.9) fL Plt Count 308 (163-337) K/mm3 MPV 10.0 (9.4-12.3) fl Neutrophils % (Manual) 54 (40-60) % Band Neutrophils % 0 (0-10) % Lymphocytes % (Manual) 39 (20-40) % Atypical Lymphs % 0 % Immat Monocytes % (Man) 0 Monocytes % (Manual) 7 (2-10) % Eosinophils % (Manual) 0 L (0.8-7.0) % Basophils % (Manual) 0 L (0.2-1.2) Metamyelocytes % 0 Myelocytes % 0 Promyelocytes % 0 Blast Cells % 0 Plasma Cell % (Manual) 0 Nucleated RBCs 0.0 % Platelet Estimate Adequate RBC Morph Comment Normal PT (9.7-12.0) SECONDS INR D-Dimer, Quantitative (0.19-0.50) mg/L Puncture Site Lt radial ABG pH 7.37 (7.35-7.45) ABG pCO2 42.0 (35.0-45.0) mmHg ABG pO2 64.0 L (80.0-100.0) mmHg ABG HCO3 23.7 (22.0-26.0) meq/L ABG O2 Saturation 90.2 L (96.0-97.0) % ABG Base Excess -1.1 (-2-2.0) A-a Gradient 111 mmHg O2 Delivery Device Nasal cannula Oxygen Flow Rate 3.0 FiO2 32.00 (21.00-100.00) % Blood Gas Comments P Sodium (136-145) mEq/L Potassium (3.5-5.1) mEq/L Chloride (98-107) mEq/L Carbon Dioxide (21-32) mEq/L Anion Gap (5-15) BUN (7-18) mg/dL Creatinine (0.7-1.3) mg/dL Est Cr Clr Drug Dosing mL/min Estimated GFR (MDRD) (>60) mL/min BUN/Creatinine Ratio (14-18) Glucose (80-115) mg/dL Calcium (8.5-10.1) mg/dL Magnesium (1.8-2.4) mg/dl Total Bilirubin (0.2-1.0) mg/dL AST (15-37) U/L ALT (16-63) U/L Alkaline Phosphatase (46-116) U/L Troponin I (0.00-0.056) ng/mL NT-Pro-B Natriuret Pep (0-125) pg/mL Total Protein (6.4-8.2) g/dl Albumin (3.4-5.0) g/dl Globulin gm/dL Albumin/Globulin Ratio (1-2) Lipase (73-393) U/L Urine Color (Yellow) Urine Appearance (Clear) Urine pH (5.0-8.0) Ur Specific [place] (1.005-1.030) Urine Protein (Negative) Urine Glucose (UA) (Negative) Urine Ketones (Negative) Urine Occult Blood (Negative) Urine Nitrite (Negative) Urine Bilirubin (Negative) Urine Urobilinogen (0.2-1.0) Ur Leukocyte Esterase (Negative) U Hyaline Cast (Auto) (0-5) /lpf Urine RBC (0-5) /hpf Urine WBC (0-5) /hpf Ur Squamous Epith Cells (0-5) /hpf Urine Bacteria (FEW) /hpf Urine Mucus (FEW) /hpf Influenza Type A RNA Negative (NEGATIVE) Influenza Type B RNA Negative (NEGATIVE) SARS-CoV-2 RNA ([place]) Negative (NEGATIVE) 09/02/20 09/02/20 09/02/20 Range/Units 11:53 11:53 11:53 WBC (4.23-9.07) K/mm3 RBC (4.63-6.08) M/mm3 Hgb (13.7-17.5) gm/dl Hct (40.1-51.0) % MCV (79.0-92.2) fl MCH (25.7-32.2) pg MCHC (32.2-35.5) g/dl RDW Std Deviation (35.1-43.9) fL Plt Count (163-337) K/mm3 MPV (9.4-12.3) fl Neutrophils % (Manual) (40-60) % Band Neutrophils % (0-10) % Lymphocytes % (Manual) (20-40) % Atypical Lymphs % % Immat Monocytes % (Man) Monocytes % (Manual) (2-10) % Eosinophils % (Manual) (0.8-7.0) % Basophils % (Manual) (0.2-1.2) Metamyelocytes % Myelocytes % Promyelocytes % Blast Cells % Plasma Cell % (Manual) Nucleated RBCs % Platelet Estimate RBC Morph Comment PT 11.4 (9.7-12.0) SECONDS INR 1.07 D-Dimer, Quantitative 0.63 H (0.19-0.50) mg/L Puncture Site ABG pH (7.35-7.45) ABG pCO2 (35.0-45.0) mmHg ABG pO2 (80.0-100.0) mmHg ABG HCO3 (22.0-26.0) meq/L ABG O2 Saturation (96.0-97.0) % ABG Base Excess (-2-2.0) A-a Gradient mmHg O2 Delivery Device Oxygen Flow Rate FiO2 (21.00-100.00) % Blood Gas Comments Sodium 140 (136-145) mEq/L Potassium 3.7 (3.5-5.1) mEq/L Chloride 102 (98-107) mEq/L Carbon Dioxide 26 (21-32) mEq/L Anion Gap 15.7 H (5-15) BUN 18 (7-18) mg/dL Creatinine 0.9 (0.7-1.3) mg/dL Est Cr Clr Drug Dosing 88.62 mL/min Estimated GFR (MDRD) > 60 (>60) mL/min BUN/Creatinine Ratio 20.0 H (14-18) Glucose 116 H (80-115) mg/dL Calcium 8.6 (8.5-10.1) mg/dL Magnesium 1.7 L (1.8-2.4) mg/dl Total Bilirubin 0.1 L (0.2-1.0) mg/dL AST 24 (15-37) U/L ALT 54 (16-63) U/L Alkaline Phosphatase 49 (46-116) U/L Troponin I < 0.017 (0.00-0.056) ng/mL NT-Pro-B Natriuret Pep (0-125) pg/mL Total Protein 7.6 (6.4-8.2) g/dl Albumin 4.3 (3.4-5.0) g/dl Globulin 3.3 gm/dL Albumin/Globulin Ratio 1.3 (1-2) Lipase 216 (73-393) U/L Urine Color (Yellow) Urine Appearance (Clear) Urine pH (5.0-8.0) Ur Specific [place] (1.005-1.030) Urine Protein (Negative) Urine Glucose (UA) (Negative) Urine Ketones (Negative) Urine Occult Blood (Negative) Urine Nitrite (Negative) Urine Bilirubin (Negative) Urine Urobilinogen (0.2-1.0) Ur Leukocyte Esterase (Negative) U Hyaline Cast (Auto) (0-5) /lpf Urine RBC (0-5) /hpf Urine WBC (0-5) /hpf Ur Squamous Epith Cells (0-5) /hpf Urine Bacteria (FEW) /hpf Urine Mucus (FEW) /hpf Influenza Type A RNA (NEGATIVE) Influenza Type B RNA (NEGATIVE) SARS-CoV-2 RNA (IR[place]) (NEGATIVE) 09/02/20 09/02/20 Range/Units 11:53 12:30 WBC (4.23-9.07) K/mm3 RBC (4.63-6.08) M/mm3 Hgb (13.7-17.5) gm/dl Hct (40.1-51.0) % MCV (79.0-92.2) fl MCH (25.7-32.2) pg MCHC (32.2-35.5) g/dl RDW Std Deviation (35.1-43.9) fL Plt Count (163-337) K/mm3 MPV (9.4-12.3) fl Neutrophils % (Manual) (40-60) % Band Neutrophils % (0-10) % Lymphocytes % (Manual) (20-40) % Atypical Lymphs % % Immat Monocytes % (Man) Monocytes % (Manual) (2-10) % Eosinophils % (Manual) (0.8-7.0) % Basophils % (Manual) (0.2-1.2) Metamyelocytes % Myelocytes % Promyelocytes % Blast Cells % Plasma Cell % (Manual) Nucleated RBCs % Platelet Estimate RBC Morph Comment PT (9.7-12.0) SECONDS INR D-Dimer, Quantitative (0.19-0.50) mg/L Puncture Site ABG pH (7.35-7.45) ABG pCO2 (35.0-45.0) mmHg ABG pO2 (80.0-100.0) mmHg ABG HCO3 (22.0-26.0) meq/L ABG O2 Saturation (96.0-97.0) % ABG Base Excess (-2-2.0) A-a Gradient mmHg O2 Delivery Device Oxygen Flow Rate FiO2 (21.00-100.00) % Blood Gas Comments Sodium (136-145) mEq/L Potassium (3.5-5.1) mEq/L Chloride (98-107) mEq/L Carbon Dioxide (21-32) mEq/L Anion Gap (5-15) BUN (7-18) mg/dL Creatinine (0.7-1.3) mg/dL Est Cr Clr Drug Dosing mL/min Estimated GFR (MDRD) (>60) mL/min BUN/Creatinine Ratio (14-18) Glucose (80-115) mg/dL Calcium (8.5-10.1) mg/dL Magnesium (1.8-2.4) mg/dl Total Bilirubin (0.2-1.0) mg/dL AST (15-37) U/L ALT (16-63) U/L Alkaline Phosphatase (46-116) U/L Troponin I (0.00-0.056) ng/mL NT-Pro-B Natriuret Pep 35 (0-125) pg/mL Total Protein (6.4-8.2) g/dl Albumin (3.4-5.0) g/dl Globulin gm/dL Albumin/Globulin Ratio (1-2) Lipase (73-393) U/L Urine Color Yellow (Yellow) Urine Appearance Clear (Clear) Urine pH 5.5 (5.0-8.0) Ur Specific [place] > or = 1.030 (1.005-1.030) Urine Protein 1+ H (Negative) Urine Glucose (UA) Negative (Negative) Urine Ketones 1+ H (Negative) Urine Occult Blood Negative (Negative) Urine Nitrite Negative (Negative) Urine Bilirubin Negative (Negative) Urine Urobilinogen 0.2 (0.2-1.0) Ur Leukocyte Esterase Negative (Negative) U Hyaline Cast (Auto) 5-10 H (0-5) /lpf Urine RBC Not seen (0-5) /hpf Urine WBC Not seen (0-5) /hpf Ur Squamous Epith Cells 0-5 (0-5) /hpf Urine Bacteria Not seen (FEW) /hpf Urine Mucus Many H (FEW) /hpf Influenza Type A RNA (NEGATIVE) Influenza Type B RNA (NEGATIVE) SARS-CoV-2 RNA (IRINA) (NEGATIVE) Result Diagrams: 09/02/20 11:53 09/02/20 11:53 Sepsis Event Note - Evaluation Sepsis Screening Result: No Definite Risk - Focused Exam Vital Signs: Vital Signs Temp Pulse Resp BP Pulse Ox Pulse Ox 09/02/20 13:04 95 09/02/20 11:50 91 L 09/02/20 11:22 88 L 09/02/20 11:15 36.3 C 103 H 22 H 150/83 H 86 L Problem List Initiated/Reviewed/Updated: Yes Orders Last 24hrs: Active Orders 24 hr Category Date Time Status Admission Status [Patient Status] [ADT] Routine ADT 09/02/20 13:27 Active ABG [RT Arterial Blood Gases, ABG] [RC] Click to Edit Care 09/02/20 11:24 Active Bedrest Bathroom Privileges [RC] ASDIRECTED Care 09/02/20 13:53 Active Cardiac Monitoring [RC] CONTINUOUS Care 09/02/20 13:54 Active EKG Documentation Completion [RC] STAT Care 09/02/20 11:22 Active Height and Weight [RC] DAILY Care 09/02/20 13:53 Active Intake and Output [RC] QSHIFT Care 09/02/20 13:54 Active Oxygen Therapy [RC] PRN Care 09/02/20 13:53 Active Oxygen Therapy [RC] PRN Care 09/02/20 13:55 Active Oxygen Therapy, ED [RC] ASDIRECTED Care 09/02/20 11:22 Active Pulse Oximetry [RC] CONTINUOUS Care 09/02/20 13:54 Active RT Aerosol Therapy [RC] ASDIRECTED Care 09/02/20 13:56 Active VTE/DVT Education [RC] PER UNIT ROUTINE Care 09/02/20 13:53 Active VTE/DVT Education [RC] PER UNIT ROUTINE Care 09/02/20 13:55 Active Vital Signs [RC] Q4H Care 09/02/20 13:53 Active Vital Signs [RC] Q4H Care 09/02/20 13:55 Active Regular Diet [DIET] Diet 09/02/20 Dinner Active Chest 1V Frontal [CR] Stat Exams 09/02/20 11:22 Taken CBC WITH AUTO DIFF [HEME] DAILY Lab 09/03/20 05:00 Ordered CBC WITH AUTO DIFF [HEME] DAILY Lab 09/04/20 05:00 Ordered CBC WITH AUTO DIFF [HEME] DAILY Lab 09/05/20 05:00 Ordered CBC WITH AUTO DIFF [HEME] DAILY Lab 09/06/20 05:00 Ordered COMPREHENSIVE METABOLIC PN,CMP [CHEM] DAILY Lab 09/03/20 05:00 Ordered COMPREHENSIVE METABOLIC PN,CMP [CHEM] DAILY Lab 09/04/20 05:00 Ordered COMPREHENSIVE METABOLIC PN,CMP [CHEM] DAILY Lab 09/05/20 05:00 Ordered COMPREHENSIVE METABOLIC PN,CMP [CHEM] DAILY Lab 09/06/20 05:00 Ordered CULTURE BLOOD [BC] Stat Lab 09/02/20 11:53 Received CULTURE BLOOD [BC] Stat Lab 09/02/20 12:01 Received CULTURE MRSA [RM] Stat Lab 09/02/20 13:57 Ordered CULTURE SPUTUM + SMEAR [RM] Stat Lab 09/02/20 13:57 Ordered MAGNESIUM [CHEM] DAILY Lab 09/03/20 05:00 Ordered MAGNESIUM [CHEM] DAILY Lab 09/04/20 05:00 Ordered TROPONIN I [CHEM] Q6H Lab 09/02/20 13:57 Ordered TROPONIN I [CHEM] Q6H Lab 09/02/20 19:57 Ordered ALPRAZolam [Xanax] Med 09/02/20 14:03 Pending 0.5 mg PO BID PRN Acetaminophen [TylenoL] Med 09/02/20 13:53 Active 650 mg PO Q6H PRN Acetaminophen/HYDROcodone [[place] 325-5 MG] Med 09/02/20 13:53 Active 1 tab PO Q4H PRN Albuterol [Proventil Neb Soln] Med 09/02/20 13:55 Active 2.5 mg NEB Q2H PRN Albuterol/Ipratropium [DuoNeb 3.0-0.5 MG/3 ML] Med 09/02/20 13:55 Active 3 ml NEB Q4H PRN Azithromycin [Zithromax] Med 09/02/20 14:00 Active 500 mg PO DAILY Enoxaparin [Lovenox] Med 09/02/20 14:00 Active 40 mg SUBCUT DAILY Fluticasone Propionate [Flonase] Med 09/02/20 14:03 Pending DOSE gm RUDY DAILY PRN Metoprolol Tartrate [Lopressor] Med 09/02/20 14:15 Ordered 12.5 mg PO Q12H Multivitamins,Therapeutic [Thera] Med 09/03/20 09:00 Active 1 each PO DAILY Pantoprazole [ProTONIX] Med 09/02/20 21:00 Active 40 mg PO BEDTIME Promethazine [Phenergan] 12.5 mg Med 09/02/20 13:55 Active Sodium Chloride 0.9% [Normal Saline] 50 ml IV Q6H amLODIPine [Norvasc] Med 09/02/20 14:15 Ordered 2.5 mg PO DAILY hydrALAZINE [Apresoline] Med 09/02/20 14:02 Active 10 mg IVPUSH Q4H PRN predniSONE Med 09/03/20 09:00 Ordered 40 mg PO .Daily Taper Blood Culture x2 Reflex Set [OM.PC] Stat Oth 09/02/20 11:22 Ordered Resuscitation Status Routine Resus Stat 09/02/20 13:53 Ordered Medication Orders Acetaminophen (Acetaminophen 325 Mg Tab) 650 mg PO Q6H PRN PRN Reason: Pain (Mild 1-3)/fever Hydrocodone Bitart/Acetaminophen (Acetaminophen/Hydrocodone 325-5 Mg Tab) 1 tab PO Q4H PRN PRN Reason: Pain (moderate 4-6) Albuterol (Albuterol 0.083% 2.5 Mg/3 Ml Neb Soln) 2.5 mg NEB Q2H PRN PRN Reason: Shortness Of Breath/wheezing Albuterol/Ipratropium (Albuterol/Ipratropium 3.0-0.5 Mg/3 Ml Neb Soln) 3 ml NEB Q4H PRN PRN Reason: Shortness Of Breath/wheezing Alprazolam (Alprazolam 0.5 Mg Tab) 0.5 mg PO BID PRN PRN Reason: Anxiety Amlodipine Besylate (Amlodipine 5 Mg Tab) 2.5 mg PO DAILY GOPAL Azithromycin (Azithromycin 250 Mg Tab) 500 mg PO DAILY GOPAL Enoxaparin Sodium (Enoxaparin 40 Mg/0.4 Ml Syringe) 40 mg SUBCUT DAILY GOPAL Fluticasone Propionate (Fluticasone Propionate Nasal [place] 16 Gm Bottle) gm RUDY DAILY PRN PRN Reason: Allergies Hydralazine HCl (Hydralazine 20 Mg/Ml Sdv) 10 mg IVPUSH Q4H PRN PRN Reason: Hypertension Promethazine HCl 12.5 mg/ (Sodium Chloride) 50.5 mls @ 100 mls/hr IV Q6H PRN PRN Reason: Nausea/Vomiting Metoprolol Tartrate (Metoprolol Tartrate 25 Mg Tab) 12.5 mg PO Q12H GOPAL Multivitamins (Multivitamins,Therapeutic Tab) 1 each PO DAILY GOPAL Pantoprazole Sodium (Pantoprazole 40 Mg Tab.Cr) 40 mg PO BEDTIME GOPAL Prednisone (Prednisone 10 Mg Tab) 40 mg PO .Daily Taper GOPAL Assessment/Plan Comment:: He is six 4-year-old male with a history of COPD and hypertension who presented to the ER due to worsening shortness of breath for 5 days. Assessment and plan: Acute hypoxic respiratory failure Due to COPD No history of CHF. BNP Chest x-ray no acute change Pulse ox Oxygen therapy to maintain oxygen saturation 92% Exacerbation of COPD Chest x-ray no acute change Influenza screen negative Covid negative Silence lungs Prednisone 40 mg daily Zithromax 500 mg p.o. daily Inhalers Magnesium was given HTN Not well controlled Initiated amlodipine 2.5 mg and metoprolol 12.5 mg twice daily Hydralazine as needed Elevation of D-dimer Mild elevation, 0.[address] Garcia felt that there is a low risk for PE. CT angio chest was not performed. Wells score for PE 1.5 points. Low risk group: 1.3% chance of PE in an ED population. I would like to just watch Hypomagnesemia Replaced and repeat it DVT prophylaxis: Lovenox CODE STATUS: Full - Mortality Measure Prognosis:: Good
[2020-09-02] MEDS: amLODIPine 2.5 MG Tab PO SCH (16:02)
[2020-09-02] MEDS: Azithromycin 250 MG Tab PO SCH (16:08)
[2020-09-02] MEDS: Metoprolol Tartrate 25 MG Tab PO SCH ×2 (16:09→21:11)
[2020-09-02] MEDS: Enoxaparin 40 MG/0.4 ML Syringe SUBCUT SCH (16:13)
[2020-09-02] MEDS ORDERED: Melatonin 3 MG Tab PO PRN (16:25)
[2020-09-02] MEDS ORDERED: Magnesium Sulfate/Water 2 GM/50 ML BAG IV SCH (18:30)
[2020-09-02] MEDS ORDERED: Magnesium Sulfate/Water 2 GM/50 ML BAG IV ONE (18:52)
[2020-09-02] MEDS ORDERED: Pantoprazole 40 MG Tab.CR PO SCH (21:00)
[2020-09-03] MEDS: Azithromycin 250 MG Tab PO SCH (08:22)
[2020-09-03] MEDS: Enoxaparin 40 MG/0.4 ML Syringe SUBCUT SCH (08:22)
[2020-09-03] MEDS: amLODIPine 2.5 MG Tab PO SCH (08:24)
[2020-09-03] MEDS: Metoprolol Tartrate 25 MG Tab PO SCH (08:24)
--- NOTE | 2020-09-03 08:31 | CR ---
Chest: Portable view of the chest was obtained. Comparison: Prior chest x-ray of 09/03/18. Heart size and mediastinum are normal. Lungs are clear with no acute parenchymal change. Bony structures shows nothing acute. Impression: 1. Nothing acute is seen on portable chest x-ray. Diagnostic code #1
[2020-09-03] MEDS ORDERED: Multivitamins,Therapeutic Tab PO SCH (09:00)
[2020-09-03] MEDS ORDERED: predniSONE 10 MG Tab PO SCH ×2 (09:00)
--- NOTE | 2020-09-03 10:18 | PCM.DCSUM1 ---
Discharge Summary - Discharge Data Discharge Disposition: Home, Self-Care 01 Condition: Stable - Referral to Home Health Primary Care Physician: Kristina Araujo PA-C - Discharge Plan Home Medications: Home Meds Fish Oil/[place]-3 Fatty Acids [Fish Oil 1,000 MG] 1 cap PO DAILY 08/12/17 [History] Multivitamin [Multivitamins] 1 cap PO DAILY 08/12/17 [History] ALPRAZolam [Alprazolam] 0.5 mg PO BID PRN 09/02/20 [History] Celecoxib [CeleBREX] 2 cap PO DAILY 09/02/20 [History] Fluticasone Propionate [Flonase] 2 spray RUDY DAILY PRN 09/02/20 [History] Forms: ED Department Discharge Referrals: Kristina Araujo PA-C [Primary Care Provider] - - Patient Data Vitals - Most Recent: Last Vital Signs Temp 36.8 C 09/03/20 08:22 Pulse 84 09/03/20 08:24 Resp 16 09/03/20 08:22 BP 111/80 09/03/20 08:24 Pulse Ox 95 09/03/20 08:22 Weight - Most Recent: 109.044 kg I&O - Last 24 hours: Intake & Output 09/02/20 09/03/20 09/03/20 22:59 06:59 14:59 Intake Total 0 450 Output Total 700 Balance 0 -250 Lab Results - Last 24 hrs: Laboratory Results - last 24 hr 09/02/20 09/02/20 09/02/20 Range/Units 11:25 11:40 11:53 WBC 6.82 (4.23-9.07) K/mm3 RBC 5.16 (4.63-6.08) M/mm3 Hgb 15.2 (13.7-17.5) gm/dl Hct 43.1 (40.1-51.0) % MCV 83.5 (79.0-92.2) fl MCH 29.5 (25.7-32.2) pg MCHC 35.3 (32.2-35.5) g/dl RDW Std Deviation 41.1 (35.1-43.9) fL Plt Count 308 (163-337) K/mm3 MPV 10.0 (9.4-12.3) fl Neut % (Auto) (34.0-67.9) % Lymph % (Auto) (21.8-53.1) % [place] % (Auto) (5.3-12.2) % Eos % (Auto) (0.8-7.0) Baso % (Auto) (0.1-1.2) % Neut # (Auto) (1.78-5.38) K/mm3 Lymph # (Auto) (1.32-3.57) K/mm3 [place] # (Auto) (0.30-0.82) K/mm3 Eos # (Auto) (0.04-0.54) K/mm3 Baso # (Auto) (0.01-0.08) K/mm3 Neutrophils % (Manual) 54 (40-60) % Band Neutrophils % 0 (0-10) % Lymphocytes % (Manual) 39 (20-40) % Atypical Lymphs % 0 % Immat Monocytes % (Man) 0 Monocytes % (Manual) 7 (2-10) % Eosinophils % (Manual) 0 L (0.8-7.0) % Basophils % (Manual) 0 L (0.2-1.2) Metamyelocytes % 0 Myelocytes % 0 Promyelocytes % 0 Blast Cells % 0 Plasma Cell % (Manual) 0 Nucleated RBCs 0.0 % Platelet Estimate Adequate RBC Morph Comment Normal PT (9.7-12.0) SECONDS INR D-Dimer, Quantitative (0.19-0.50) mg/L Puncture Site Lt radial ABG pH 7.37 (7.35-7.45) ABG pCO2 42.0 (35.0-45.0) mmHg ABG pO2 64.0 L (80.0-100.0) mmHg ABG HCO3 23.7 (22.0-26.0) meq/L ABG O2 Saturation 90.2 L (96.0-97.0) % ABG Base Excess -1.1 (-2-2.0) A-a Gradient 111 mmHg O2 Delivery Device Nasal cannula Oxygen Flow Rate 3.0 FiO2 32.00 (21.00-100.00) % Blood Gas Comments P Sodium (136-145) mEq/L Potassium (3.5-5.1) mEq/L Chloride (98-107) mEq/L Carbon Dioxide (21-32) mEq/L Anion Gap (5-15) BUN (7-18) mg/dL Creatinine (0.7-1.3) mg/dL Est Cr Clr Drug Dosing mL/min Estimated GFR (MDRD) (>60) mL/min BUN/Creatinine Ratio (14-18) Glucose (80-115) mg/dL Calcium (8.5-10.1) mg/dL Magnesium (1.8-2.4) mg/dl Total Bilirubin (0.2-1.0) mg/dL AST (15-37) U/L ALT (16-63) U/L Alkaline Phosphatase (46-116) U/L Troponin I (0.00-0.056) ng/mL NT-Pro-B Natriuret Pep (0-125) pg/mL Total Protein (6.4-8.2) g/dl Albumin (3.4-5.0) g/dl Globulin gm/dL Albumin/Globulin Ratio (1-2) Lipase (73-393) U/L Urine Color (Yellow) Urine Appearance (Clear) Urine pH (5.0-8.0) Ur Specific [place] (1.005-1.030) Urine Protein (Negative) Urine Glucose (UA) (Negative) Urine Ketones (Negative) Urine Occult Blood (Negative) Urine Nitrite (Negative) Urine Bilirubin (Negative) Urine Urobilinogen (0.2-1.0) Ur Leukocyte Esterase (Negative) U Hyaline Cast (Auto) (0-5) /lpf Urine RBC (0-5) /hpf Urine WBC (0-5) /hpf Ur Squamous Epith Cells (0-5) /hpf Urine Bacteria (FEW) /hpf Urine Mucus (FEW) /hpf Influenza Type A RNA Negative (NEGATIVE) Influenza Type B RNA Negative (NEGATIVE) SARS-CoV-2 RNA (IRINA) Negative (NEGATIVE) MRSA (PCR) 09/02/20 09/02/20 09/02/20 Range/Units 11:53 11:53 11:53 WBC (4.23-9.07) K/mm3 RBC (4.63-6.08) M/mm3 Hgb (13.7-17.5) gm/dl Hct (40.1-51.0) % MCV (79.0-92.2) fl MCH (25.7-32.2) pg MCHC (32.2-35.5) g/dl RDW Std Deviation (35.1-43.9) fL Plt Count (163-337) K/mm3 MPV (9.4-12.3) fl Neut % (Auto) (34.0-67.9) % Lymph % (Auto) (21.8-53.1) % [place] % (Auto) (5.3-12.2) % Eos % (Auto) (0.8-7.0) Baso % (Auto) (0.1-1.2) % Neut # (Auto) (1.78-5.38) K/mm3 Lymph # (Auto) (1.32-3.57) K/mm3 [place] # (Auto) (0.30-0.82) K/mm3 Eos # (Auto) (0.04-0.54) K/mm3 Baso # (Auto) (0.01-0.08) K/mm3 Neutrophils % (Manual) (40-60) % Band Neutrophils % (0-10) % Lymphocytes % (Manual) (20-40) % Atypical Lymphs % % Immat Monocytes % (Man) Monocytes % (Manual) (2-10) % Eosinophils % (Manual) (0.8-7.0) % Basophils % (Manual) (0.2-1.2) Metamyelocytes % Myelocytes % Promyelocytes % Blast Cells % Plasma Cell % (Manual) Nucleated RBCs % Platelet Estimate RBC Morph Comment PT 11.4 (9.7-12.0) SECONDS INR 1.07 D-Dimer, Quantitative 0.63 H (0.19-0.50) mg/L Puncture Site ABG pH (7.35-7.45) ABG pCO2 (35.0-45.0) mmHg ABG pO2 (80.0-100.0) mmHg ABG HCO3 (22.0-26.0) meq/L ABG O2 Saturation (96.0-97.0) % ABG Base Excess (-2-2.0) A-a Gradient mmHg O2 Delivery Device Oxygen Flow Rate FiO2 (21.00-100.00) % Blood Gas Comments Sodium 140 (136-145) mEq/L Potassium 3.7 (3.5-5.1) mEq/L Chloride 102 (98-107) mEq/L Carbon Dioxide 26 (21-32) mEq/L Anion Gap 15.7 H (5-15) BUN 18 (7-18) mg/dL Creatinine 0.9 (0.7-1.3) mg/dL Est Cr Clr Drug Dosing 88.62 mL/min Estimated GFR (MDRD) > 60 (>60) mL/min BUN/Creatinine Ratio 20.0 H (14-18) Glucose 116 H (80-115) mg/dL Calcium 8.6 (8.5-10.1) mg/dL Magnesium 1.7 L (1.8-2.4) mg/dl Total Bilirubin 0.1 L (0.2-1.0) mg/dL AST 24 (15-37) U/L ALT 54 (16-63) U/L Alkaline Phosphatase 49 (46-116) U/L Troponin I < 0.017 (0.00-0.056) ng/mL NT-Pro-B Natriuret Pep (0-125) pg/mL Total Protein 7.6 (6.4-8.2) g/dl Albumin 4.3 (3.4-5.0) g/dl Globulin 3.3 gm/dL Albumin/Globulin Ratio 1.3 (1-2) Lipase 216 (73-393) U/L Urine Color (Yellow) Urine Appearance (Clear) Urine pH (5.0-8.0) Ur Specific [place] (1.005-1.030) Urine Protein (Negative) Urine Glucose (UA) (Negative) Urine Ketones (Negative) Urine Occult Blood (Negative) Urine Nitrite (Negative) Urine Bilirubin (Negative) Urine Urobilinogen (0.2-1.0) Ur Leukocyte Esterase (Negative) U Hyaline Cast (Auto) (0-5) /lpf Urine RBC (0-5) /hpf Urine WBC (0-5) /hpf Ur Squamous Epith Cells (0-5) /hpf Urine Bacteria (FEW) /hpf Urine Mucus (FEW) /hpf Influenza Type A RNA (NEGATIVE) Influenza Type B RNA (NEGATIVE) SARS-CoV-2 RNA (IRINA) (NEGATIVE) MRSA (PCR) 09/02/20 09/02/20 09/02/20 Range/Units 11:53 12:30 14:17 WBC (4.23-9.07) K/mm3 RBC (4.63-6.08) M/mm3 Hgb (13.7-17.5) gm/dl Hct (40.1-51.0) % MCV (79.0-92.2) fl MCH (25.7-32.2) pg MCHC (32.2-35.5) g/dl RDW Std Deviation (35.1-43.9) fL Plt Count (163-337) K/mm3 MPV (9.4-12.3) fl Neut % (Auto) (34.0-67.9) % Lymph % (Auto) (21.8-53.1) % [place] % (Auto) (5.3-12.2) % Eos % (Auto) (0.8-7.0) Baso % (Auto) (0.1-1.2) % Neut # (Auto) (1.78-5.38) K/mm3 Lymph # (Auto) (1.32-3.57) K/mm3 [place] # (Auto) (0.30-0.82) K/mm3 Eos # (Auto) (0.04-0.54) K/mm3 Baso # (Auto) (0.01-0.08) K/mm3 Neutrophils % (Manual) (40-60) % Band Neutrophils % (0-10) % Lymphocytes % (Manual) (20-40) % Atypical Lymphs % % Immat Monocytes % (Man) Monocytes % (Manual) (2-10) % Eosinophils % (Manual) (0.8-7.0) % Basophils % (Manual) (0.2-1.2) Metamyelocytes % Myelocytes % Promyelocytes % Blast Cells % Plasma Cell % (Manual) Nucleated RBCs % Platelet Estimate RBC Morph Comment PT (9.7-12.0) SECONDS INR D-Dimer, Quantitative (0.19-0.50) mg/L Puncture Site ABG pH (7.35-7.45) ABG pCO2 (35.0-45.0) mmHg ABG pO2 (80.0-100.0) mmHg ABG HCO3 (22.0-26.0) meq/L ABG O2 Saturation (96.0-97.0) % ABG Base Excess (-2-2.0) A-a Gradient mmHg O2 Delivery Device Oxygen Flow Rate FiO2 (21.00-100.00) % Blood Gas Comments Sodium (136-145) mEq/L Potassium (3.5-5.1) mEq/L Chloride (98-107) mEq/L Carbon Dioxide (21-32) mEq/L Anion Gap (5-15) BUN (7-18) mg/dL Creatinine (0.7-1.3) mg/dL Est Cr Clr Drug Dosing mL/min Estimated GFR (MDRD) (>60) mL/min BUN/Creatinine Ratio (14-18) Glucose (80-115) mg/dL Calcium (8.5-10.1) mg/dL Magnesium (1.8-2.4) mg/dl Total Bilirubin (0.2-1.0) mg/dL AST (15-37) U/L ALT (16-63) U/L Alkaline Phosphatase (46-116) U/L Troponin I < 0.017 (0.00-0.056) ng/mL NT-Pro-B Natriuret Pep 35 (0-125) pg/mL Total Protein (6.4-8.2) g/dl Albumin (3.4-5.0) g/dl Globulin gm/dL Albumin/Globulin Ratio (1-2) Lipase (73-393) U/L Urine Color Yellow (Yellow) Urine Appearance Clear (Clear) Urine pH 5.5 (5.0-8.0) Ur Specific [place] > or = 1.030 (1.005-1.030) Urine Protein 1+ H (Negative) Urine Glucose (UA) Negative (Negative) Urine Ketones 1+ H (Negative) Urine Occult Blood Negative (Negative) Urine Nitrite Negative (Negative) Urine Bilirubin Negative (Negative) Urine Urobilinogen 0.2 (0.2-1.0) Ur Leukocyte Esterase Negative (Negative) U Hyaline Cast (Auto) 5-10 H (0-5) /lpf Urine RBC Not seen (0-5) /hpf Urine WBC Not seen (0-5) /hpf Ur Squamous Epith Cells 0-5 (0-5) /hpf Urine Bacteria Not seen (FEW) /hpf Urine Mucus Many H (FEW) /hpf Influenza Type A RNA (NEGATIVE) Influenza Type B RNA (NEGATIVE) SARS-CoV-2 RNA ([place]) (NEGATIVE) MRSA (PCR) 09/02/20 09/02/20 09/03/20 Range/Units 16:54 20:00 05:45 WBC 15.30 H (4.23-9.07) K/mm3 RBC 4.87 (4.63-6.08) M/mm3 Hgb 14.7 (13.7-17.5) gm/dl Hct 41.1 (40.1-51.0) % MCV 84.4 (79.0-92.2) fl MCH 30.2 (25.7-32.2) pg MCHC 35.8 H (32.2-35.5) g/dl RDW Std Deviation 41.4 (35.1-43.9) fL Plt Count 335 (163-337) K/mm3 MPV 10.4 (9.4-12.3) fl Neut % (Auto) 83.4 H (34.0-67.9) % Lymph % (Auto) 10.8 L (21.8-53.1) % [place] % (Auto) 5.3 (5.3-12.2) % Eos % (Auto) 0.1 L (0.8-7.0) Baso % (Auto) 0.1 (0.1-1.2) % Neut # (Auto) 12.77 H (1.78-5.38) K/mm3 Lymph # (Auto) 1.66 (1.32-3.57) K/mm3 [place] # (Auto) 0.81 (0.30-0.82) K/mm3 Eos # (Auto) 0.01 L (0.04-0.54) K/mm3 Baso # (Auto) 0.01 (0.01-0.08) K/mm3 Neutrophils % (Manual) (40-60) % Band Neutrophils % (0-10) % Lymphocytes % (Manual) (20-40) % Atypical Lymphs % % Immat Monocytes % (Man) Monocytes % (Manual) (2-10) % Eosinophils % (Manual) (0.8-7.0) % Basophils % (Manual) (0.2-1.2) Metamyelocytes % Myelocytes % Promyelocytes % Blast Cells % Plasma Cell % (Manual) Nucleated RBCs % Platelet Estimate RBC Morph Comment PT (9.7-12.0) SECONDS INR D-Dimer, Quantitative (0.19-0.50) mg/L Puncture Site ABG pH (7.35-7.45) ABG pCO2 (35.0-45.0) mmHg ABG pO2 (80.0-100.0) mmHg ABG HCO3 (22.0-26.0) meq/L ABG O2 Saturation (96.0-97.0) % ABG Base Excess (-2-2.0) A-a Gradient mmHg O2 Delivery Device Oxygen Flow Rate FiO2 (21.00-100.00) % Blood Gas Comments Sodium (136-145) mEq/L Potassium (3.5-5.1) mEq/L Chloride (98-107) mEq/L Carbon Dioxide (21-32) mEq/L Anion Gap (5-15) BUN (7-18) mg/dL Creatinine (0.7-1.3) mg/dL Est Cr Clr Drug Dosing mL/min Estimated GFR (MDRD) (>60) mL/min BUN/Creatinine Ratio (14-18) Glucose (80-115) mg/dL Calcium (8.5-10.1) mg/dL Magnesium (1.8-2.4) mg/dl Total Bilirubin (0.2-1.0) mg/dL AST (15-37) U/L ALT (16-63) U/L Alkaline Phosphatase (46-116) U/L Troponin I < 0.017 (0.00-0.056) ng/mL NT-Pro-B Natriuret Pep (0-125) pg/mL Total Protein (6.4-8.2) g/dl Albumin (3.4-5.0) g/dl Globulin gm/dL Albumin/Globulin Ratio (1-2) Lipase (73-393) U/L Urine Color (Yellow) Urine Appearance (Clear) Urine pH (5.0-8.0) Ur Specific [place] (1.005-1.030) Urine Protein (Negative) Urine Glucose (UA) (Negative) Urine Ketones (Negative) Urine Occult Blood (Negative) Urine Nitrite (Negative) Urine Bilirubin (Negative) Urine Urobilinogen (0.2-1.0) Ur Leukocyte Esterase (Negative) U Hyaline Cast (Auto) (0-5) /lpf Urine RBC (0-5) /hpf Urine WBC (0-5) /hpf Ur Squamous Epith Cells (0-5) /hpf Urine Bacteria (FEW) /hpf Urine Mucus (FEW) /hpf Influenza Type A RNA (NEGATIVE) Influenza Type B RNA (NEGATIVE) SARS-CoV-2 RNA ([place]) (NEGATIVE) MRSA (PCR) Negative 09/03/20 Range/Units 05:45 WBC (4.23-9.07) K/mm3 RBC (4.63-6.08) M/mm3 Hgb (13.7-17.5) gm/dl Hct (40.1-51.0) % MCV (79.0-92.2) fl MCH (25.7-32.2) pg MCHC (32.2-35.5) g/dl RDW Std Deviation (35.1-43.9) fL Plt Count (163-337) K/mm3 MPV (9.4-12.3) fl Neut % (Auto) (34.0-67.9) % Lymph % (Auto) (21.8-53.1) % [place] % (Auto) (5.3-12.2) % Eos % (Auto) (0.8-7.0) Baso % (Auto) (0.1-1.2) % Neut # (Auto) (1.78-5.38) K/mm3 Lymph # (Auto) (1.32-3.57) K/mm3 [place] # (Auto) (0.30-0.82) K/mm3 Eos # (Auto) (0.04-0.54) K/mm3 Baso # (Auto) (0.01-0.08) K/mm3 Neutrophils % (Manual) (40-60) % Band Neutrophils % (0-10) % Lymphocytes % (Manual) (20-40) % Atypical Lymphs % % Immat Monocytes % (Man) Monocytes % (Manual) (2-10) % Eosinophils % (Manual) (0.8-7.0) % Basophils % (Manual) (0.2-1.2) Metamyelocytes % Myelocytes % Promyelocytes % Blast Cells % Plasma Cell % (Manual) Nucleated RBCs % Platelet Estimate RBC Morph Comment PT (9.7-12.0) SECONDS INR D-Dimer, Quantitative (0.19-0.50) mg/L Puncture Site ABG pH (7.35-7.45) ABG pCO2 (35.0-45.0) mmHg ABG pO2 (80.0-100.0) mmHg ABG HCO3 (22.0-26.0) meq/L ABG O2 Saturation (96.0-97.0) % ABG Base Excess (-2-2.0) A-a Gradient mmHg O2 Delivery Device Oxygen Flow Rate FiO2 (21.00-100.00) % Blood Gas Comments Sodium 137 (136-145) mEq/L Potassium 4.0 (3.5-5.1) mEq/L Chloride 103 (98-107) mEq/L Carbon Dioxide 23 (21-32) mEq/L Anion Gap 15.0 (5-15) BUN 17 (7-18) mg/dL Creatinine 0.9 (0.7-1.3) mg/dL Est Cr Clr Drug Dosing 88.62 mL/min Estimated GFR (MDRD) > 60 (>60) mL/min BUN/Creatinine Ratio 18.9 H (14-18) Glucose 121 H (80-115) mg/dL Calcium 8.7 (8.5-10.1) mg/dL Magnesium 2.0 (1.8-2.4) mg/dl Total Bilirubin 0.7 (0.2-1.0) mg/dL AST 19 (15-37) U/L ALT 47 (16-63) U/L Alkaline Phosphatase 48 (46-116) U/L Troponin I (0.00-0.056) ng/mL NT-Pro-B Natriuret Pep (0-125) pg/mL Total Protein 7.6 (6.4-8.2) g/dl Albumin 4.1 (3.4-5.0) g/dl Globulin 3.5 gm/dL Albumin/Globulin Ratio 1.2 (1-2) Lipase (73-393) U/L Urine Color (Yellow) Urine Appearance (Clear) Urine pH (5.0-8.0) Ur Specific [place] (1.005-1.030) Urine Protein (Negative) Urine Glucose (UA) (Negative) Urine Ketones (Negative) Urine Occult Blood (Negative) Urine Nitrite (Negative) Urine Bilirubin (Negative) Urine Urobilinogen (0.2-1.0) Ur Leukocyte Esterase (Negative) U Hyaline Cast (Auto) (0-5) /lpf Urine RBC (0-5) /hpf Urine WBC (0-5) /hpf Ur Squamous Epith Cells (0-5) /hpf Urine Bacteria (FEW) /hpf Urine Mucus (FEW) /hpf Influenza Type A RNA (NEGATIVE) Influenza Type B RNA (NEGATIVE) SARS-CoV-2 RNA ([place]) (NEGATIVE) MRSA (PCR) [place] Results - Last 24 hrs: Microbiology 09/02/20 17:15 Gram Stain - Preliminary Sputum - Expectorated Med Orders - Current: Current Medications Acetaminophen (Acetaminophen 325 Mg Tab) 650 mg PO Q6H PRN PRN Reason: Pain (Mild 1-3)/fever Hydrocodone Bitart/Acetaminophen (Acetaminophen/Hydrocodone 325-5 Mg Tab) 1 tab PO Q4H PRN PRN Reason: Pain (moderate 4-6) Albuterol (Albuterol 0.083% 2.5 Mg/3 Ml Neb Soln) 2.5 mg NEB Q2H PRN PRN Reason: Shortness Of Breath/wheezing Albuterol/Ipratropium (Albuterol/Ipratropium 3.0-0.5 Mg/3 Ml Neb Soln) 3 ml NEB Q4H PRN PRN Reason: Shortness Of Breath/wheezing Alprazolam (Alprazolam 0.5 Mg Tab) 0.5 mg PO BID PRN PRN Reason: Anxiety Amlodipine Besylate (Amlodipine 2.5 Mg Tab) 2.5 mg PO DAILY [facility] Last Admin: 09/03/20 08:24 Dose: 2.5 mg Documented by: Azithromycin (Azithromycin 250 Mg Tab) 500 mg PO DAILY [facility] Last Admin: 09/03/20 08:22 Dose: 500 mg Documented by: Enoxaparin Sodium (Enoxaparin 40 Mg/0.4 Ml Syringe) 40 mg SUBCUT DAILY [facility] Last Admin: 09/03/20 08:22 Dose: Not Given Documented by: Fluticasone Propionate (Fluticasone Propionate Nasal [facility] 16 Gm Bottle) gm RUDY DAILY PRN PRN Reason: Allergies Hydralazine HCl (Hydralazine 20 Mg/Ml Sdv) 10 mg IVPUSH Q4H PRN PRN Reason: Hypertension Promethazine HCl 12.5 mg/ (Sodium Chloride) 50.5 mls @ 100 mls/hr IV Q6H PRN PRN Reason: Nausea/Vomiting Melatonin (Melatonin 3 Mg Tab) 3 mg PO BEDTIME PRN PRN Reason: Insomnia Metoprolol Tartrate (Metoprolol Tartrate 25 Mg Tab) 12.5 mg PO BID [facility] Last Admin: 09/03/20 08:24 Dose: 12.5 mg Documented by: Multivitamins (Multivitamins,Therapeutic Tab) 1 each PO DAILY [facility] Last Admin: 09/03/20 08:23 Dose: 1 each Documented by: Pantoprazole Sodium (Pantoprazole 40 Mg Tab.Cr) 40 mg PO BEDTIME [facility] Last Admin: 09/02/20 21:19 Dose: Not Given Documented by: Prednisone (Prednisone 10 Mg Tab) 30 mg PO DAILY [facility] Stop: 09/05/20 10:00 Last Admin: 09/03/20 08:23 Dose: 30 mg Documented by: Discontinued Medications Magnesium Sulfate (Magnesium Sulfate In Water 2 Gm/50 Ml) 2 gm in 50 mls @ 25 mls/hr IV Q1H [facility] Last Admin: 09/02/20 19:15 Dose: Not Given Documented by: Magnesium Sulfate (Magnesium Sulfate In Water 2 Gm/50 Ml) 2 gm in 50 mls @ 25 mls/hr IV ONETIME ONE Stop: 09/02/20 20:51 Last Admin: 09/02/20 18:59 Dose: 25 mls/hr Documented by: Methylprednisolone Sodium Succinate (Methylprednisolone Sodium Succinate 125 Mg/2 Ml Sdv) 125 mg IVPUSH ONETIME ONE Stop: 09/02/20 12:53 Last Admin: 09/02/20 13:04 Dose: 125 mg Documented by: Prednisone (Prednisone 10 Mg Tab) 40 mg PO .Daily Taper [facility]
[2020-09-03 11:44] VITALS: BP 150/71; PULSE 76
--- NOTE | 2020-09-03 14:28 | PCM.DCSUM1 ---
Discharge Summary - Hospital Course Free Text/Narrative:: He is six 4-year-old male with a history of COPD and hypertension who presented to the ER due to worsening shortness of breath for 5 days. Assessment and plan: Acute hypoxic respiratory failure Due to COPD No history of CHF. BNP Chest x-ray no acute change Pulse ox Oxygen therapy to maintain oxygen saturation 92%. He is on RM with good oxygen sat today. I recommended to him pulmonary function test as an out. Exacerbation of COPD Chest x-ray no acute change Influenza screen negative Covid negative Silence lungs Prednisone 40 mg daily x 3 days Zithromax 500 mg p.o. daily x 3-5 days Inhalers. He will be discharged on short acting and long acting inhalers. Magnesium 2.0 today HTN Better controlled Initiated amlodipine 2.5 mg and metoprolol 12.5 mg twice daily Hydralazine as needed Elevation of D-dimer Mild elevation, 0.[address] Garcia felt that there is a low risk for PE. CT angio chest was not performed. Wells score for PE 1.5 points. Low risk group: 1.3% chance of PE in an ED population. Wells' Criteria for DVT: 0 points. Low risk group for DVT. Unlikely according to Wells DVT studies. Discussed with the patient the benefits and the risk for CT angio chest. He agreed not to have CT angio chest and further work-up for the elevation of D- dimer. F/u with pcp orin. Hypomagnesemia 2.0 today Replaced and repeat it Today patient feels much better. Less shortness of breath. Otherwise denies headache, dizziness, chest pain (ER board marked pt as "chest pain". But ER DR. Garcia informed me that pt did not have chest pain. Pt also denies having chest pain during throughout the ER visit and hospitalization), nausea, vomiting, abdominal pain, or diarrhea. He is on RM with good oxygen saturation today. Patient can walk without any problems. can take care of him. He has been on po meds during the hospitalization. Patient will be discharged home on po azithromycin and po prednisone to follow with PCP in 3 days and cardiology within one week. I recommended him to have a pulmonary function test. Repeat CBC, CMP and electrolytes in [address] until approval from MD. Call PCP for medical issues. Diagnosis: Stroke: No - Discharge Data Discharge Date: 09/03/20 Discharge Disposition: Home, Self-Care 01 Condition: Good - Referral to Home Health Primary Care Physician: Kristina Araujo PA-C - Patient Summary/Data Recommended Follow-up Testing/Procedures: follow with PCP in 3 days and cardiology within one week. I recommended him to have a pulmonary function test. Repeat CBC, CMP and electrolytes in [address] until approval from MD. Call PCP for medical issues. - Patient Instructions Diet: Heart Healthy Diet Activity: As Tolerated - Discharge Plan *PRESCRIPTION DRUG MONITORING PROGRAM REVIEWED*: Not Applicable *COPY OF PRESCRIPTION DRUG MONITORING REPORT IN PATIENT JARROD: Not Applicable Prescriptions/Med Rec: Glycopyrrolate/Formoterol Fum [Bevespi Aerosphere Inhaler] 1 puff IH BID #1 box Metoprolol Tartrate [Lopressor] 12.5 mg PO BID #30 tablet amLODIPine [Norvasc] 2.5 mg PO DAILY #30 tablet predniSONE 30 mg PO DAILY #6 tablet Albuterol [Ventolin HFA] 1 puff INH Q8H PRN #1 box PRN Reason: Shortness Of Breath Azithromycin [Zithromax] 500 mg PO DAILY #3 tablet Home Medications: Home Meds Fish Oil/[place]-3 Fatty Acids [Fish Oil 1,000 MG] 1 cap PO DAILY 08/12/17 [History] Multivitamin [Multivitamins] 1 cap PO DAILY 08/12/17 [History] ALPRAZolam [Alprazolam] 0.5 mg PO BID PRN 09/02/20 [History] Fluticasone Propionate [Flonase] 2 spray RUDY DAILY PRN 09/02/20 [History] Albuterol [Ventolin HFA] 1 puff INH Q8H PRN #1 box 09/03/20 [Rx] Azithromycin [Zithromax] 500 mg PO DAILY #3 tablet 09/03/20 [Rx] Glycopyrrolate/Formoterol Fum [Bevespi Aerosphere Inhaler] 1 puff IH BID #1 box 09/03/20 [Rx] Metoprolol Tartrate [Lopressor] 12.5 mg PO BID #30 tablet 09/03/20 [Rx] amLODIPine [Norvasc] 2.5 mg PO DAILY #30 tablet 09/03/20 [Rx] predniSONE 30 mg PO DAILY #6 tablet 09/03/20 [Rx] Forms: ED Department Discharge Referrals: cardiology, within one week. [Other] pulmonary, function test [Other] Kristina Araujo PA-C [Primary Care Provider] - (in 3 days) - Discharge Summary/Plan Comment DC Time >30 min.: Yes - General Info Date of Service: 09/03/20 Admission Dx/Problem (Free Text: Admission Diagnosis/Problem Admission Diagnosis/Problem Chronic obstructive pulmonary disease Subjective Update: Today patient feels much better. Less shortness of breath. Otherwise denies headache, dizziness, chest pain , nausea, vomiting, abdominal pain, or diarrhea. He is on RM with good oxygen saturation today. - Review of Systems Systems Review Comment: General: Reports: Fatigue HEENT: Reports: Headaches, Rhinitis, Sinus Congestion (improved) Pulmonary: Reports: Shortness of Breath (improved) Cardiovascular: Reports: No Symptoms Gastrointestinal: Reports: No Symptoms Genitourinary: Reports: No Symptoms Musculoskeletal: Reports: No Symptoms Skin: Reports: No Symptoms Psychiatric: Reports: No Symptoms Neurological: Reports: No Symptoms Hematologic/Lymphatic: Reports: No Symptoms Immunologic: Reports: No Symptoms - Patient Data Vitals - Most Recent: Last Vital Signs Temp 36.8 C 09/03/20 11:09 Pulse 76 09/03/20 11:09 Resp 16 09/03/20 11:09 BP 150/71 H 09/03/20 11:09 Pulse Ox 94 L 09/03/20 11:09 Weight - Most Recent: 109.044 kg I&O - Last 24 hours: Intake & Output 09/02/20 09/03/20 09/03/20 22:59 06:59 14:59 Intake Total 0 450 200 Output Total 700 Balance 0 -250 200 Lab Results - Last 24 hrs: Laboratory Results - last 24 hr 09/02/20 09/02/20 09/02/20 Range/Units 14:17 16:54 20:00 WBC (4.23-9.07) K/mm3 RBC (4.63-6.08) M/mm3 Hgb (13.7-17.5) gm/dl Hct (40.1-51.0) % MCV (79.0-92.2) fl MCH (25.7-32.2) pg MCHC (32.2-35.5) g/dl RDW Std Deviation (35.1-43.9) fL Plt Count (163-337) K/mm3 MPV (9.4-12.3) fl Neut % (Auto) (34.0-67.9) % Lymph % (Auto) (21.8-53.1) % [place] % (Auto) (5.3-12.2) % Eos % (Auto) (0.8-7.0) Baso % (Auto) (0.1-1.2) % Neut # (Auto) (1.78-5.38) K/mm3 Lymph # (Auto) (1.32-3.57) K/mm3 [place] # (Auto) (0.30-0.82) K/mm3 Eos # (Auto) (0.04-0.54) K/mm3 Baso # (Auto) (0.01-0.08) K/mm3 Sodium (136-145) mEq/L Potassium (3.5-5.1) mEq/L Chloride (98-107) mEq/L Carbon Dioxide (21-32) mEq/L Anion Gap (5-15) BUN (7-18) mg/dL Creatinine (0.7-1.3) mg/dL Est Cr Clr Drug Dosing mL/min Estimated GFR (MDRD) (>60) mL/min BUN/Creatinine Ratio (14-18) Glucose (80-115) mg/dL Calcium (8.5-10.1) mg/dL Magnesium (1.8-2.4) mg/dl Total Bilirubin (0.2-1.0) mg/dL AST (15-37) U/L ALT (16-63) U/L Alkaline Phosphatase (46-116) U/L Troponin I < 0.017 < 0.017 (0.00-0.056) ng/mL Total Protein (6.4-8.2) g/dl Albumin (3.4-5.0) g/dl Globulin gm/dL Albumin/Globulin Ratio (1-2) MRSA (PCR) Negative 09/03/20 09/03/20 Range/Units 05:45 05:45 WBC 15.30 H (4.23-9.07) K/mm3 RBC 4.87 (4.63-6.08) M/mm3 Hgb 14.7 (13.7-17.5) gm/dl Hct 41.1 (40.1-51.0) % MCV 84.4 (79.0-92.2) fl MCH 30.2 (25.7-32.2) pg MCHC 35.8 H (32.2-35.5) g/dl RDW Std Deviation 41.4 (35.1-43.9) fL Plt Count 335 (163-337) K/mm3 MPV 10.4 (9.4-12.3) fl Neut % (Auto) 83.4 H (34.0-67.9) % Lymph % (Auto) 10.8 L (21.8-53.1) % [place] % (Auto) 5.3 (5.3-12.2) % Eos % (Auto) 0.1 L (0.8-7.0) Baso % (Auto) 0.1 (0.1-1.2) % Neut # (Auto) 12.77 H (1.78-5.38) K/mm3 Lymph # (Auto) 1.66 (1.32-3.57) K/mm3 [place] # (Auto) 0.81 (0.30-0.82) K/mm3 Eos # (Auto) 0.01 L (0.04-0.54) K/mm3 Baso # (Auto) 0.01 (0.01-0.08) K/mm3 Sodium 137 (136-145) mEq/L Potassium 4.0 (3.5-5.1) mEq/L Chloride 103 (98-107) mEq/L Carbon Dioxide 23 (21-32) mEq/L Anion Gap 15.0 (5-15) BUN 17 (7-18) mg/dL Creatinine 0.9 (0.7-1.3) mg/dL Est Cr Clr Drug Dosing 88.62 mL/min Estimated GFR (MDRD) > 60 (>60) mL/min BUN/Creatinine Ratio 18.9 H (14-18) Glucose 121 H (80-115) mg/dL Calcium 8.7 (8.5-10.1) mg/dL Magnesium 2.0 (1.8-2.4) mg/dl Total Bilirubin 0.7 (0.2-1.0) mg/dL AST 19 (15-37) U/L ALT 47 (16-63) U/L Alkaline Phosphatase 48 (46-116) U/L Troponin I (0.00-0.056) ng/mL Total Protein 7.6 (6.4-8.2) g/dl Albumin 4.1 (3.4-5.0) g/dl Globulin 3.5 gm/dL Albumin/Globulin Ratio 1.2 (1-2) MRSA (PCR) [facility] Results - Last 24 hrs: Microbiology 09/02/20 17:15 Gram Stain - Final Sputum - Expectorated Sputum Culture - Preliminary 09/02/20 12:01 Aerobic Blood Culture - Preliminary Blood - Venous - Lab Draw NO GROWTH AFTER 1 DAY Anaerobic Blood Culture - Preliminary NO GROWTH AFTER 1 DAY 09/02/20 11:53 Aerobic Blood Culture - Preliminary Blood - Venous NO GROWTH AFTER 1 DAY Anaerobic Blood Culture - Preliminary NO GROWTH AFTER 1 DAY Med Orders - Current: Current Medications Acetaminophen (Acetaminophen 325 Mg Tab) 650 mg PO Q6H PRN PRN Reason: Pain (Mild 1-3)/fever Hydrocodone Bitart/Acetaminophen (Acetaminophen/Hydrocodone 325-5 Mg Tab) 1 tab PO Q4H PRN PRN Reason: Pain (moderate 4-6) Albuterol (Albuterol 0.083% 2.5 Mg/3 Ml Neb Soln) 2.5 mg NEB Q2H PRN PRN Reason: Shortness Of Breath/wheezing Albuterol/Ipratropium (Albuterol/Ipratropium 3.0-0.5 Mg/3 Ml Neb Soln) 3 ml NEB Q4H PRN PRN Reason: Shortness Of Breath/wheezing Alprazolam (Alprazolam 0.5 Mg Tab) 0.5 mg PO BID PRN PRN Reason: Anxiety Amlodipine Besylate (Amlodipine 2.5 Mg Tab) 2.5 mg PO DAILY [facility] [place] Last Admin: 09/03/20 08:24 Dose: 2.5 mg Documented by: Azithromycin (Azithromycin 250 Mg Tab) 500 mg PO DAILY [facility] [place] Last Admin: 09/03/20 08:22 Dose: 500 mg Documented by: Enoxaparin Sodium (Enoxaparin 40 Mg/0.4 Ml Syringe) 40 mg SUBCUT DAILY [facility] [place] Last Admin: 09/03/20 08:22 Dose: Not Given Documented by: Fluticasone Propionate (Fluticasone Propionate Nasal [place] 16 Gm Bottle) gm RUDY DAILY PRN PRN Reason: Allergies Hydralazine HCl (Hydralazine 20 Mg/Ml Sdv) 10 mg IVPUSH Q4H PRN PRN Reason: Hypertension Promethazine HCl 12.5 mg/ (Sodium Chloride) 50.5 mls @ 100 mls/hr IV Q6H PRN PRN Reason: Nausea/Vomiting Melatonin (Melatonin 3 Mg Tab) 3 mg PO BEDTIME PRN PRN Reason: Insomnia Metoprolol Tartrate (Metoprolol Tartrate 25 Mg Tab) 12.5 mg PO BID [facility] [place] Last Admin: 09/03/20 08:24 Dose: 12.5 mg Documented by: Multivitamins (Multivitamins,Therapeutic Tab) 1 each PO DAILY [facility] [place] Last Admin: 09/03/20 08:23 Dose: 1 each Documented by: Pantoprazole Sodium (Pantoprazole 40 Mg Tab.Cr) 40 mg PO BEDTIME [facility] [place] Last Admin: 09/02/20 21:19 Dose: Not Given Documented by: Prednisone (Prednisone 10 Mg Tab) 30 mg PO DAILY [facility] [place] Stop: 09/05/20 10:00 Last Admin: 09/03/20 08:23 Dose: 30 mg Documented by: Discontinued Medications Magnesium Sulfate (Magnesium Sulfate In Water 2 Gm/50 Ml) 2 gm in 50 mls @ 25 mls/hr IV Q1H [facility] [place] Last Admin: 09/02/20 19:15 Dose: Not Given Documented by: Magnesium Sulfate (Magnesium Sulfate In Water 2 Gm/50 Ml) 2 gm in 50 mls @ 25 mls/hr IV ONETIME ONE Stop: 09/02/20 20:51 Last Admin: 09/02/20 18:59 Dose: 25 mls/hr Documented by: Methylprednisolone Sodium Succinate (Methylprednisolone Sodium Succinate 125 Mg/2 Ml Sdv) 125 mg IVPUSH ONETIME ONE Stop: 09/02/20 12:53 Last Admin: 09/02/20 13:04 Dose: 125 mg Documented by: Prednisone (Prednisone 10 Mg Tab) 40 mg PO .Daily Taper [facility] [place] - Exam Physical Findings Comments:: General: Alert, Oriented, Cooperative HEENT: Conjunctiva Clear, EOMI, Pupils Equal, Pupils Reactive Neck: Supple, Trachea Midline Lungs: Decreased Breath Sounds (No crackle, no wheezing) Cardiovascular: Regular Rate, Regular Rhythm, Normal S1, Normal S2 GI/Abdominal Exam: Normal Bowel Sounds, Soft, Non-Tender, No Organomegaly, No Distention Extremities: Normal Inspection, Normal Range of Motion, Non-Tender, No Pedal Edema, no erythema, Perry sign negative. Normal Capillary Refill Neurological: Cranial Nerves Intact, Reflexes Equal Bilateral, Strength Equal Bilateral, Normal Speech, Normal Tone, Sensation Intact Neuro Extensive - Mental Status: Alert, Oriented x3, Normal Mood/Affect, Normal Cognition Neuro Extensive - Motor, Sensory, Reflexes: CN II-XII Intact, Normal Reflexes Psychiatric: Alert, Normal Affect, Normal Mood
== END 2020-09-03 14:53 | disposition home or self-care (01) ==
LOC: JD.ED 11:09 → JD.MS 13:27
PROVIDERS: ADMIT Internal Medicine; ATTEND Internal Medicine
DX: J44.1 Chronic obstructive pulmonary disease with (acute) exacerbation (principal); J96.01 Acute respiratory failure with hypoxia; I10 Essential (primary) hypertension; R79.1 Abnormal coagulation profile; E83.42 Hypomagnesemia; E78.00 Pure hypercholesterolemia, unspecified; Z20.822 Contact with and (suspected) exposure to COVID-19; Z88.0 Allergy status to penicillin; Z91.09 Other allergy status, other than to drugs and biological substances; Z87.891 Personal history of nicotine dependence; Z98.890 Other specified postprocedural states
CPT/HCPCS: 0240U; 36415; 36600; 71045; 80053; 81001; 82803; 83690; 83735; 83880; 84484; 85007; 85025; 85027; 85379; 85610; 87040; 87070; 87077; 87184; 87205; 87641; 93005; 94762; 96365; 96366; 96372; 96375; 99285; A9270; G0378; J1650; J2930; J3475; J7512; 96374; 99217; 99220; 99283

== ENCOUNTER 2020-09-26 19:12 | Emergency (ER) | payer MEDICARE, OTHER ==
[2020-09-26 19:21] VITALS: BP 206/110; PULSE 110
[2020-09-26] MEDS ORDERED: Sodium Chloride 0.9% 10 ML Syringe FLUSH PRN (19:25)
[2020-09-26] MEDS ORDERED: methylPREDNISolone Sodium Succinate 125 MG/2 ML SDV IVPUSH ONE (19:42)
--- NOTE | 2020-09-26 19:42 | EDM.PDOC ---
ED HPI GENERAL MEDICAL PROBLEM - General Chief Complaint: Respiratory Problem Stated Complaint: sob Time Seen by Provider: 09/26/20 19:23 Source of Information: Reports: Patient, Old Records, RN Notes Reviewed History Limitations: Reports: No Limitations - History of Present Illness INITIAL COMMENTS - FREE TEXT/NARRATIVE: Patient is a 64-year-old male who presents to the ED for her shortness of breath. Patient notes this was of sudden onset around 4 PM this afternoon. He states that he has been having these episodes for about 6 or 7 months. His O2 sats were visualized at around 88 to 89% on room air, he does seem to be having heaving type breathing pattern. He can complete sentences, but this seems to be somewhat hard for him. He was admitted in this hospital at the end of August, for a suspected COPD exacerbation. He did have a PFT done after this, and he states that it demonstrated he did not have COPD. He states that he has been tested for Covid multiple times and all of these times have been negative. He is having no chest pain with this, he is denying any cough, he has had no nausea vomiting or diarrhea. He did have an appointment with an ENT doctor in [place] today and was placed on doxycycline for management and has an upcoming CT scan. Patient states also that he stopped using his inhalers, after the PFT was done, as he states they "did not help anyway". - Related Data Allergies Allergy/AdvReac Type Severity Reaction Status Date / Time Penicillins Allergy Severe Rash Verified 09/26/20 19:22 pollen extracts Allergy Severe Cannot Verified 09/26/20 19:22 Remember Home Meds: Home Meds Fish Oil/Purmela-3 Fatty Acids [Fish Oil 1,000 MG] 1 cap PO DAILY 08/12/17 [History] Multivitamin [Multivitamins] 1 cap PO DAILY 08/12/17 [History] ALPRAZolam [Alprazolam] 0.5 mg PO BID PRN 09/02/20 [History] Fluticasone Propionate [Flonase] 2 spray RUDY DAILY PRN 09/02/20 [History] Albuterol [Ventolin HFA] 1 puff INH Q8H PRN #1 box 09/03/20 [Rx] Azithromycin [Zithromax] 500 mg PO DAILY #3 tablet 09/03/20 [Rx] Glycopyrrolate/Formoterol Fum [Bevespi Aerosphere Inhaler] 1 puff IH BID #1 box 09/03/20 [Rx] Metoprolol Tartrate [Lopressor] 12.5 mg PO BID #30 tablet 09/03/20 [Rx] amLODIPine [Norvasc] 2.5 mg PO DAILY #30 tablet 09/03/20 [Rx] predniSONE 30 mg PO DAILY #6 tablet 09/03/20 [Rx] predniSONE 20 mg PO ASDIRECTED #15 tab 09/26/20 [Rx] Past Medical History HEENT History: Reports: Impaired Vision Cardiovascular History: Reports: High Cholesterol, Hypertension Respiratory History: Reports: Other (See Below) Other Respiratory History: Pt states this issue with his breathing has been ongoing for six months with prednisone being the only treatment that has temporarily relieved symptoms - Infectious Disease History Infectious Disease History: Reports: Chicken Pox, Mumps - Past Surgical History HEENT Surgical History: Reports: LASIK GI Surgical History: Reports: Appendectomy, Cholecystectomy Musculoskeletal Surgical History: Reports: Other (See Below) Other Musculoskeletal Surgeries/Procedures:: marta higgins Social & Family History - Family History Family Medical History: No Pertinent Family History - Tobacco Use Tobacco Use Status *Q: Former Tobacco User Years of Tobacco use: 30 Packs/Tins Daily: 1 Used Tobacco, but Quit: Yes Month/Year Tobacco Last Used: 06/2008 - Caffeine Use Caffeine Use: Reports: Coffee Caffeine Use Comment: 2-3 cups of coffee every morning - Recreational Drug Use Recreational Drug Use: No ED ROS GENERAL - Review of Systems Review Of Systems: Comprehensive ROS is negative, except as noted in HPI. ED EXAM, GENERAL - Physical Exam Exam: See Below Exam Limited By: No Limitations General Appearance: Alert, WD/WN, No Apparent Distress Nose: Normal Inspection, Other (pt has a very congested sound to him) Respiratory/Chest: Lungs Clear (Left lung), Normal Breath Sounds (Left lung), Respiratory Distress (mild, talks in short sentences), Decreased Breath Sounds (R lung entire lung field), Wheezing (R lung, end expiratory) Cardiovascular: Normal Peripheral Pulses, Regular Rate, Rhythm, No Edema Peripheral Pulses: 2+: Radial (L), Radial (R) Extremities: Normal Inspection, Normal Capillary Refill Neurological: Alert, Oriented, Normal Cognition, No Motor/Sensory Deficits Psychiatric: Normal Affect, Normal Mood Skin Exam: Warm, Intact, Normal Color, No Rash, Diaphoretic (mild generalized, states that he gets this way when these episodes happen.) #1 Interpretation EKG Date: 09/26/20 Time: 19:38 Rhythm: NSR (sinus tach) Rate (Beats/Min): 101 [place]: Normal P-Wave: Present QRS: Normal ST-T: Normal QT: Normal Comparison: No Change EKG Interpretation Comments: No obvious ischemia or acute ST changes noted, reviewed by myself and Dr. Hu. Course - Vital Signs Last Recorded V/S: Last Vital Signs Temp 97 F 09/26/20 19:17 Pulse 110 H 09/26/20 19:17 Resp 18 09/26/20 19:17 BP 206/110 H 09/26/20 19:17 Pulse Ox 94 L 09/26/20 21:09 - Orders/Labs/Meds Orders: Active Orders 24 hr Category Date Time Status EKG Documentation Completion [RC] STAT Care 09/26/20 19:24 Active Oxygen Therapy, ED [RC] ASDIRECTED Care 09/26/20 20:00 Active Peripheral IV Care [RC] . DIRECTED Care 09/26/20 19:25 Active RT Aerosol Therapy [RC] ASDIRECTED Care 09/26/20 21:09 Active Chest 2V [CR] Stat Exams 09/26/20 19:36 Taken [id number] AB [REF] Stat Lab 09/26/20 19:37 Received Sodium Chloride 0.9% [Saline Flush] Med 09/26/20 19:25 Active 10 ml FLUSH ASDIRECTED PRN Peripheral IV Insertion Adult [OM.PC] Routine Oth 09/26/20 19:25 Ordered Medication Orders Sodium Chloride (Sodium Chloride 0.9% 10 Ml Syringe) 10 ml FLUSH ASDIRECTED PRN PRN Reason: Keep Vein Open Last Admin: 09/26/20 20:07 Dose: 10 ml Documented by: SINA Labs: Laboratory Tests 09/26/20 09/26/20 09/26/20 Range/Units 19:37 19:37 19:37 WBC 8.59 (4.23-9.07) K/mm3 RBC 5.02 (4.63-6.08) M/mm3 Hgb 15.0 (13.7-17.5) gm/dl Hct 42.9 (40.1-51.0) % MCV 85.5 (79.0-92.2) fl MCH 29.9 (25.7-32.2) pg MCHC 35.0 (32.2-35.5) g/dl RDW Std Deviation 41.0 (35.1-43.9) fL Plt Count 299 (163-337) K/mm3 MPV 10.5 (9.4-12.3) fl Neutrophils % (Manual) 64 H (40-60) % Band Neutrophils % 0 (0-10) % Lymphocytes % (Manual) 32 (20-40) % Atypical Lymphs % 0 % Monocytes % (Manual) 1 L (2-10) % Eosinophils % (Manual) 3 (0.8-7.0) % Basophils % (Manual) 0 L (0.2-1.2) Platelet Estimate Adequate RBC Morph Comment Normal PT 11.2 (9.7-12.0) SECONDS INR 1.05 APTT 25.4 (21.7-31.4) SECONDS D-Dimer, Quantitative 0.68 H (0.19-0.50) mg/L Puncture Site ABG pH (7.35-7.45) ABG pCO2 (35.0-45.0) mmHg ABG pO2 (80.0-100.0) mmHg ABG HCO3 (22.0-26.0) meq/L ABG O2 Saturation (96.0-97.0) % ABG Base Excess (-2-2.0) Wilfrid Test A-a Gradient mmHg O2 Delivery Device Oxygen Flow Rate FiO2 (21.00-100.00) % Sodium (136-145) mEq/L Potassium (3.5-5.1) mEq/L Chloride (98-107) mEq/L Carbon Dioxide (21-32) mEq/L Anion Gap (5-15) BUN (7-18) mg/dL Creatinine (0.7-1.3) mg/dL Est Cr Clr Drug Dosing mL/min Estimated GFR (MDRD) (>60) mL/min BUN/Creatinine Ratio (14-18) Glucose (80-115) mg/dL Lactic Acid (0.4-2.0) mmol/L Calcium (8.5-10.1) mg/dL Magnesium (1.8-2.4) mg/dl Ferritin (26-388) ng/ml Total Bilirubin (0.2-1.0) mg/dL AST (15-37) U/L ALT (16-63) U/L Alkaline Phosphatase (46-116) U/L Lactate Dehydrogenase (85-227) U/L Troponin I (0.00-0.056) ng/mL C-Reactive Protein 0.2 (<1.0) mg/dL NT-Pro-B Natriuret Pep (0-125) pg/mL Total Protein (6.4-8.2) g/dl Albumin (3.4-5.0) g/dl Globulin gm/dL Albumin/Globulin Ratio (1-2) Influenza Type A RNA (NEGATIVE) Influenza Type B RNA (NEGATIVE) SARS-CoV-2 RNA (IR[facility]) (NEGATIVE) 09/26/20 09/26/20 09/26/20 Range/Units 19:37 19:37 19:37 WBC (4.23-9.07) K/mm3 RBC (4.63-6.08) M/mm3 Hgb (13.7-17.5) gm/dl Hct (40.1-51.0) % MCV (79.0-92.2) fl MCH (25.7-32.2) pg MCHC (32.2-35.5) g/dl RDW Std Deviation (35.1-43.9) fL Plt Count (163-337) K/mm3 MPV (9.4-12.3) fl Neutrophils % (Manual) (40-60) % Band Neutrophils % (0-10) % Lymphocytes % (Manual) (20-40) % Atypical Lymphs % % Monocytes % (Manual) (2-10) % Eosinophils % (Manual) (0.8-7.0) % Basophils % (Manual) (0.2-1.2) Platelet Estimate RBC Morph Comment PT (9.7-12.0) SECONDS INR APTT (21.7-31.4) SECONDS D-Dimer, Quantitative (0.19-0.50) mg/L Puncture Site ABG pH (7.35-7.45) ABG pCO2 (35.0-45.0) mmHg ABG pO2 (80.0-100.0) mmHg ABG HCO3 (22.0-26.0) meq/L ABG O2 Saturation (96.0-97.0) % ABG Base Excess (-2-2.0) Wilfrid Test A-a Gradient mmHg O2 Delivery Device Oxygen Flow Rate FiO2 (21.00-100.00) % Sodium 141 (136-145) mEq/L Potassium 3.7 (3.5-5.1) mEq/L Chloride 103 (98-107) mEq/L Carbon Dioxide 25 (21-32) mEq/L Anion Gap 16.7 H (5-15) BUN 21 H (7-18) mg/dL Creatinine 1.7 H (0.7-1.3) mg/dL Est Cr Clr Drug Dosing 46.92 mL/min Estimated GFR (MDRD) 41 (>60) mL/min BUN/Creatinine Ratio 12.4 L (14-18) Glucose 109 (80-115) mg/dL Lactic Acid (0.4-2.0) mmol/L Calcium 8.7 (8.5-10.1) mg/dL Magnesium 1.8 (1.8-2.4) mg/dl Ferritin 322 (26-388) ng/ml Total Bilirubin 0.6 (0.2-1.0) mg/dL AST 15 (15-37) U/L ALT 52 (16-63) U/L Alkaline Phosphatase 52 (46-116) U/L Lactate Dehydrogenase 154 (85-227) U/L Troponin I < 0.017 (0.00-0.056) ng/mL C-Reactive Protein (<1.0) mg/dL NT-Pro-B Natriuret Pep 25 (0-125) pg/mL Total Protein 7.6 (6.4-8.2) g/dl Albumin 4.0 (3.4-5.0) g/dl Globulin 3.6 gm/dL Albumin/Globulin Ratio 1.1 (1-2) Influenza Type A RNA (NEGATIVE) Influenza Type B RNA (NEGATIVE) SARS-CoV-2 RNA (IR[facility]) (NEGATIVE) 09/26/20 09/26/20 09/26/20 Range/Units 19:37 19:38 20:19 WBC (4.23-9.07) K/mm3 RBC (4.63-6.08) M/mm3 Hgb (13.7-17.5) gm/dl Hct (40.1-51.0) % MCV (79.0-92.2) fl MCH (25.7-32.2) pg MCHC (32.2-35.5) g/dl RDW Std Deviation (35.1-43.9) fL Plt Count (163-337) K/mm3 MPV (9.4-12.3) fl Neutrophils % (Manual) (40-60) % Band Neutrophils % (0-10) % Lymphocytes % (Manual) (20-40) % Atypical Lymphs % % Monocytes % (Manual) (2-10) % Eosinophils % (Manual) (0.8-7.0) % Basophils % (Manual) (0.2-1.2) Platelet Estimate RBC Morph Comment PT (9.7-12.0) SECONDS INR APTT (21.7-31.4) SECONDS D-Dimer, Quantitative (0.19-0.50) mg/L Puncture Site Lt radial ABG pH 7.39 (7.35-7.45) ABG pCO2 42.4 (35.0-45.0) mmHg ABG pO2 59.0 L (80.0-100.0) mmHg ABG HCO3 24.8 (22.0-26.0) meq/L ABG O2 Saturation 89.5 L (96.0-97.0) % ABG Base Excess 0.2 (-2-2.0) Wilfrid Test Positive A-a Gradient 37 mmHg O2 Delivery Device Room air Oxygen Flow Rate 0.0 FiO2 21.00 (21.00-100.00) % Sodium (136-145) mEq/L Potassium (3.5-5.1) mEq/L Chloride (98-107) mEq/L Carbon Dioxide (21-32) mEq/L Anion Gap (5-15) BUN (7-18) mg/dL Creatinine (0.7-1.3) mg/dL Est Cr Clr Drug Dosing mL/min Estimated GFR (MDRD) (>60) mL/min BUN/Creatinine Ratio (14-18) Glucose (80-115) mg/dL Lactic Acid 0.6 (0.4-2.0) mmol/L Calcium (8.5-10.1) mg/dL Magnesium (1.8-2.4) mg/dl Ferritin (26-388) ng/ml Total Bilirubin (0.2-1.0) mg/dL AST (15-37) U/L ALT (16-63) U/L Alkaline Phosphatase (46-116) U/L Lactate Dehydrogenase (85-227) U/L Troponin I (0.00-0.056) ng/mL C-Reactive Protein (<1.0) mg/dL NT-Pro-B Natriuret Pep (0-125) pg/mL Total Protein (6.4-8.2) g/dl Albumin (3.4-5.0) g/dl Globulin gm/dL Albumin/Globulin Ratio (1-2) Influenza Type A RNA Negative (NEGATIVE) Influenza Type B RNA Negative (NEGATIVE) SARS-CoV-2 RNA ([facility]) Negative (NEGATIVE) Meds: Medications Generic Name Dose Route Start Last Admin Trade Name Freq PRN Reason Stop Dose Admin Sodium Chloride 10 ml 09/26/20 19:25 09/26/20 20:07 Sodium Chloride 0.9% 10 Ml Syringe FLUSH 10 ml ASDIRECTED PRN Administration Keep Vein Open Discontinued Medications Generic Name Dose Route Start Last Admin Trade Name Freq PRN Reason Stop Dose Admin Albuterol/Ipratropium 3 ml 09/26/20 21:09 09/26/20 21:15 Albuterol/Ipratropium 3.0-0.5 Mg/3 Ml Neb Soln NEB 09/26/20 21:10 3 ml ONETIME ONE Administration Methylprednisolone Sodium Succinate 125 mg 09/26/20 19:42 09/26/20 20:06 Methylprednisolone Sodium Succinate 125 Mg/2 Ml Sdv IVPUSH 09/26/20 19:43 125 mg ONETIME ONE Administration - Re-Assessments/Exams Free Text/Narrative Re-Assessment/Exam: 09/26/20 19:41 Patient presents to the ER for his ongoing shortness of breath. Patient states he has been having these issues for 6 or 7 months, and is not getting much answers for what is going on. We will go ahead and repeat COVID-19 testing, get a chest x-ray, EKG, and a multitude of labs for further evaluation. I do highly suspect some sort of hyperreactive airways disease in nature due to the wheezing in his lungs, and sudden onset of the shortness of breath symptoms. 09/26/20 20:48 Patient's laboratory evaluation has completed for the most part. CBC is unremarkable, patient is D-dimer mildly elevated again at 0.68, but he does have some mild renal insufficiency with a creatinine of 1.7 and a GFR 41, which could attribute the slight increase in the D-dimer. Also is not concerning for his age at this time. ABG demonstrates a PO2 of 59, correlates with his O2 sats of 88 to 89% on room air. Trop is negative, CRP is 0.2. Chest x-ray has been done, official radiology read is pending however I do not appreciate any sort of consolidative process or obvious infiltrate. This was reviewed by myself and Dr. Hu at this time. Still awaiting the repeat COVID-19 screen. Will reassess at bedside, and hope to send the patient home with a course of prednisone and have him follow-up with his primary care provider for referral to pulmonology as well. 09/26/20 21:18 Patient was re-assessed at bedside, states that he feels much better. I have o rdered a Deepak for ongoing management. I did take a listen to his lungs again, and the right sided wheezing/diminished sounds I heard initially, have subsequently gone. When he takes deep breaths, his O2 sats are 94% on room air. 09/26/20 21:52 Patient's influenza and Covid screen are both negative for today's purposes. Have ordered outpatient Covid antibody testing, he may follow-up with his regular care provider for results of this. Departure - Departure Time of Disposition: 21:52 Disposition: Home, Self-Care 01 Condition: Good Clinical Impression: Chronic nasal congestion, Acute dyspnea, Wheezing on right side of chest on exhalation - Discharge Information *PRESCRIPTION DRUG MONITORING PROGRAM REVIEWED*: No *COPY OF PRESCRIPTION DRUG MONITORING REPORT IN PATIENT JARROD: No Prescriptions: predniSONE 20 mg PO ASDIRECTED #15 tab Instructions: Shortness of Breath, Adult, [id number] Referrals: Kristina Araujo PA-C [Primary Care Provider] - Forms: ED Department Discharge Additional Instructions: You were evaluated in the ER today for your ongoing shortness of breath. A thorough laboratory evaluation demonstrated no acute focal abnormalities. Your influenza screen and COVID-19 screen were both negative at today's visit. You did however get Covid antibody testing done at today's visit, to see if maybe you have had an older Covid infection that may have gotten missed, which might be prolonging your respiratory illnesses that you are experiencing. Please take all other prior medications as previously prescribed by your regular care providers. You have been started on a prednisone or steroid burst for your suspected reactive airways disease. Please take as directed, 1 tablet 2 times a day for 5 days, then 1 tablet daily for the last 5 days. This medication was electronically sent to the [place] pharmacy located in the [facility] grocery store. You will need to follow-up with your primary care provider, Kristina Araujo for results of the Covid antibody testing, please allow this a couple business days to result, and try to make an appointment early next week for ongoing management. This also would be for follow-up visit from being in the ER. Please do not hesitate to return to the ER at any time if symptoms change or worsen. Sepsis Event Note (ED) - Evaluation Sepsis Screening Result: No Definite Risk - Focused Exam Vital Signs: Vital Signs Temp Pulse Resp BP Pulse Ox Pulse Ox 09/26/20 21:09 94 L 09/26/20 20:17 93 L 09/26/20 19:17 97 F 110 H 18 206/110 H 88 L - My Orders Last 24 Hours: My Active Orders 09/26/20 19:24 EKG Documentation Completion [RC] STAT 09/26/20 19:25 Peripheral IV Care [RC] . DIRECTED Sodium Chloride 0.9% [Saline Flush] 10 ml FLUSH ASDIRECTED PRN Peripheral IV Insertion Adult [OM.PC] Routine 09/26/20 19:36 Chest 2V [CR] Stat 09/26/20 19:37 [id number] AB [REF] Stat 09/26/20 20:00 Oxygen Therapy, ED [RC] ASDIRECTED 09/26/20 21:09 RT Aerosol Therapy [RC] ASDIRECTED - Assessment/Plan Last 24 Hours: My Active Orders 09/26/20 19:24 EKG Documentation Completion [RC] STAT 09/26/20 19:25 Peripheral IV Care [RC] . DIRECTED Sodium Chloride 0.9% [Saline Flush] 10 ml FLUSH ASDIRECTED PRN Peripheral IV Insertion Adult [OM.PC] Routine 09/26/20 19:36 Chest 2V [CR] Stat 09/26/20 19:37 [id number] AB [REF] Stat 09/26/20 20:00 Oxygen Therapy, ED [RC] ASDIRECTED 09/26/20 21:09 RT Aerosol Therapy [RC] ASDIRECTED
[2020-09-26] MEDS ORDERED: Albuterol/Ipratropium 3.0-0.5 MG/3 ML Neb Soln NEB ONE (21:09)
[2020-09-26 21:46] LABS: CORONAVIRUS COVID-19 NAA NEGATIVE (NEGATIVE)
--- NOTE | 2020-09-27 08:09 | CR ---
Chest: PA and lateral views of the chest were obtained. Comparison: Prior chest x-ray of 09/02/20. Heart size and mediastinum are normal. Lung markings are slightly increased within the left perihilar region likely representing mild bronchitis. Lungs otherwise are clear. Bony structures are within normal limits for the patient's age. Impression: 1. Findings suspicious for left-sided bronchitis. 2. No other acute abnormality is appreciated. Diagnostic code #3
== END 2020-09-26 22:03 | disposition home or self-care (01) ==
LOC: JD.ED 19:12
DX: R06.2 Wheezing (principal); R06.00 Dyspnea, unspecified; R09.81 Nasal congestion; R00.0 Tachycardia, unspecified; I10 Essential (primary) hypertension; Z87.891 Personal history of nicotine dependence; Z79.899 Other long term (current) drug therapy; Z88.0 Allergy status to penicillin; Z91.048 Other nonmedicinal substance allergy status; Z20.822 Contact with and (suspected) exposure to COVID-19
CPT/HCPCS: 0240U; 36415; 36600; 71046; 80053; 82728; 82803; 83605; 83615; 83735; 83880; 84484; 85007; 85027; 85379; 85610; 85730; 86140; 86769; 93005; 94640; 96374; 99285; J2930; 93010; 99284; J7620-GY

== ENCOUNTER 2020-10-10 22:04 | Emergency (ER) | payer MEDICARE, OTHER ==
[2020-10-10 22:16] VITALS: BP 192/83; PULSE 110
[2020-10-10] MEDS ORDERED: Sodium Chloride 0.9% 10 ML Syringe FLUSH PRN (22:29)
[2020-10-10] MEDS ORDERED: Ondansetron 4 MG/2 ML SDV IVPUSH ONE (22:31)
--- NOTE | 2020-10-10 22:47 | EDM.PDOC ---
ED HPI GENERAL MEDICAL PROBLEM - General Chief Complaint: Respiratory Problem Stated Complaint: HAVING TROUBLE BREATHING Time Seen by Provider: 10/10/20 22:10 Source of Information: Reports: Patient History Limitations: Reports: No Limitations - History of Present Illness INITIAL COMMENTS - FREE TEXT/NARRATIVE: Patient arrived to ED via private vehicle Onset of symptoms was about 3 hours prior to arrival States he was sitting, relaxing when symptoms began Describes sudden occurrence of nasal congestion and shortness of breath with wheezing Associated upper sternal chest discomfort and profuse diaphoresis This is the fourth or fifth episode of similar symptoms which has occurred over the past 6 months Symptoms have typically subsided over 6-8 hours In between the episodes he has had no chest pain, dyspnea, or intolerance of activity He has had evaluation by pulmonology with what, per description, sounds like pulmonary function tests He was seen by ENT 2 weeks ago, prescribed antibiotic therapy for reason patient is not aware, and is scheduled for CT scan of sinuses States he has been seen in ED for each of these episodes, and has been prescribed multiple courses of antibiotics during last 6 months He has been treated with inhalers and nebulized medication with no significant response during these episodes He has no known history of cardiac disease He had cardiac catheterization performed about 2 years ago, which was reportedly unremarkable He is a non-smoker Chest Pain Score (Numeric/FACES): 5 - Related Data Allergies Allergy/AdvReac Type Severity Reaction Status Date / Time Penicillins Allergy Intermediate Rash Verified 10/10/20 22:16 pollen extracts Allergy Mild Cannot Verified 10/10/20 22:16 Remember Home Meds: Home Meds Fish Oil/[place]ometown-3 Fatty Acids [Fish Oil 1,000 MG] 1 cap PO DAILY 08/12/17 [History] Multivitamin [Multivitamins] 1 cap PO DAILY 08/12/17 [History] ALPRAZolam [Alprazolam] 0.5 mg PO BID PRN 09/02/20 [History] Fluticasone Propionate [Flonase] 2 spray RUDY DAILY PRN 09/02/20 [History] Albuterol [Ventolin HFA] 1 puff INH Q8H PRN #1 box 09/03/20 [Rx] Azithromycin [Zithromax] 500 mg PO DAILY #3 tablet 09/03/20 [Rx] Glycopyrrolate/Formoterol Fum [Bevespi Aerosphere Inhaler] 1 puff IH BID #1 box 09/03/20 [Rx] Metoprolol Tartrate [Lopressor] 12.5 mg PO BID #30 tablet 09/03/20 [Rx] amLODIPine [Norvasc] 2.5 mg PO DAILY #30 tablet 09/03/20 [Rx] predniSONE 30 mg PO DAILY #6 tablet 09/03/20 [Rx] predniSONE 20 mg PO ASDIRECTED #15 tab 09/26/20 [Rx] Past Medical History HEENT History: Reports: Impaired Vision Cardiovascular History: Reports: High Cholesterol, Hypertension Respiratory History: Reports: Other (See Below) Other Respiratory History: Pt states this issue with his breathing has been ongoing for six months with prednisone being the only treatment that has temporarily relieved symptoms - Infectious Disease History Infectious Disease History: Reports: Chicken Pox, Mumps - Past Surgical History HEENT Surgical History: Reports: LASIK Other HEENT Surgeries/Procedures: L eye Respiratory Surgical History: Reports: None GI Surgical History: Reports: Appendectomy, Cholecystectomy Neurological Surgical History: Reports: None Musculoskeletal Surgical History: Reports: Other (See Below) Other Musculoskeletal Surgeries/Procedures:: marta higgins Social & Family History - Family History Family Medical History: No Pertinent Family History - Tobacco Use Tobacco Use Status *Q: Never Tobacco User - Caffeine Use Caffeine Use: Reports: Coffee Caffeine Use Comment: 2-3 cups of coffee every morning ED ROS GENERAL - Review of Systems Review Of Systems: See Below Free Text/Narrative/Comment: Constitutional - no fever; diaphoresis Eyes - no eye pain; no visual disturbance ENT - no rhinorrhea; congestion; no epistaxis Cardiovascular - chest pain Respiratory - shortness of breath; no cough Gastrointestinal - no abdominal pain; no nausea; no vomiting; no diarrhea Genitourinary - no dysuria Musculoskeletal - no neck pain; no back pain; no extremity injury Neurological - no headache; no speech disturbance; no weakness ED EXAM, GENERAL - Physical Exam Exam: See Below Free Text/Narrative:: Constitutional - awake; alert; mild to moderate distress; diaphoretic; appears generally uncomfortable Head - no facial swelling or weakness Eyes - extra ocular motion intact; conjunctiva normal; pupils equal and reactive to light ENT - no nasal deformity; no epistaxis; phonation consistent with nasal/sinus congestion; mucus membranes moist; Neck - no swelling Respiratory - normal respiratory effort; mild, bilateral wheezing with moderately diminished breath sounds; no crackles; no stridor Cardiovascular - regular rhythm; normal rate; S1; S2; grade 1/6 systolic murmur GI/Abdomen - normal bowel sounds; soft; no tenderness; no rebound; no guarding; no mass Musculoskeletal - grossly normal strength and motion; no swelling or deformity Skin - warm; dry Neurologic - normal speech; no weakness; gait intact Psychiatric - normal mood and affect; memory and attention normal #1 Interpretation EKG Date: 10/10/20 Time: 22:14 Rhythm: Other (Moderate baseline artifact) Rate (Beats/Min): 105 F[place]: Normal P-Wave: Present QRS: Normal ST-T: Other (No ischemic changes) Comparison: Other: (Compared with 09/26/2020, no morphologic changes, baseline artifact present) #2 Interpretation EKG Date: 10/11/20 Time: 03:52 Rhythm: NSR Fithian: Normal P-Wave: Present QRS: Normal ST-T: Normal Comparison: Other: (When compared with 2213 EKG, baseline artifact no longer present, no morphologic changes) Course - Vital Signs Text/Narrative:: . Considered etiologies included: Chest pain, dyspnea, ACS/angina, pulmonary embolism, dysphoria, URI, reactive airway disease, CHF, autonomic dysfunction Symptoms and examination were discussed Investigations were initiated Bronchodilator therapy was deferred as patient stated no significant improvement with prior treatment He subsequently complained of nausea and was given ondansetron There was gradual improvement and resolution of symptoms during subsequent ED course This was consistent with his previous presentations over past several months CTA chest was obtained for further investigation Results were discussed, and were unremarkable His presentation raised question of 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 Consideration for follow-up toxicology consultation was discussed Patient was felt to be stable for outpatient follow-up Return precautions were provided Last Recorded V/S: Last Vital Signs Temp 36.2 C 10/10/20 22:13 Pulse 110 H 10/10/20 22:13 Resp 22 H 10/10/20 22:13 BP 192/83 H 10/10/20 22:13 Pulse Ox 78 L 10/10/20 22:13 - Orders/Labs/Meds Labs: Laboratory Tests 10/10/20 10/10/20 10/10/20 Range/Units 22:20 22:20 22:20 WBC 8.46 (4.23-9.07) K/mm3 RBC 5.24 (4.63-6.08) M/mm3 Hgb 15.8 (13.7-17.5) gm/dl Hct 44.6 (40.1-51.0) % MCV 85.1 (79.0-92.2) fl MCH 30.2 (25.7-32.2) pg MCHC 35.4 (32.2-35.5) g/dl RDW Std Deviation 39.8 (35.1-43.9) fL Plt Count 291 (163-337) K/mm3 MPV 10.8 (9.4-12.3) fl Neut % (Auto) 42.7 (34.0-67.9) % Lymph % (Auto) 48.3 (21.8-53.1) % Luna % (Auto) 5.7 (5.3-12.2) % Eos % (Auto) 2.6 (0.8-7.0) Baso % (Auto) 0.2 (0.1-1.2) % Neut # (Auto) 3.61 (1.78-5.38) K/mm3 Lymph # (Auto) 4.09 H (1.32-3.57) K/mm3 Luna # (Auto) 0.48 (0.30-0.82) K/mm3 Eos # (Auto) 0.22 (0.04-0.54) K/mm3 Baso # (Auto) 0.02 (0.01-0.08) K/mm3 Sodium 143 (136-145) mEq/L Potassium 3.8 (3.5-5.1) mEq/L Chloride 106 (98-107) mEq/L Carbon Dioxide 26 (21-32) mEq/L Anion Gap 14.8 (5-15) BUN 24 H (7-18) mg/dL Creatinine 1.0 (0.7-1.3) mg/dL Est Cr Clr Drug Dosing 79.76 mL/min Estimated GFR (MDRD) > 60 (>60) mL/min BUN/Creatinine Ratio 24.0 H (14-18) Glucose 124 H (80-115) mg/dL Calcium 8.8 (8.5-10.1) mg/dL Magnesium 2.7 H (1.8-2.4) mg/dl Total Bilirubin 0.5 (0.2-1.0) mg/dL AST 18 (15-37) U/L ALT 44 (16-63) U/L Alkaline Phosphatase 66 (46-116) U/L Troponin I < 0.017 (0.00-0.056) ng/mL NT-Pro-B Natriuret Pep 17 (0-125) pg/mL Total Protein 7.7 (6.4-8.2) g/dl Albumin 3.9 (3.4-5.0) g/dl Globulin 3.8 gm/dL Albumin/Globulin Ratio 1.0 (1-2) 10/11/20 Range/Units 03:45 WBC (4.23-9.07) K/mm3 RBC (4.63-6.08) M/mm3 Hgb (13.7-17.5) gm/dl Hct (40.1-51.0) % MCV (79.0-92.2) fl MCH (25.7-32.2) pg MCHC (32.2-35.5) g/dl RDW Std Deviation (35.1-43.9) fL Plt Count (163-337) K/mm3 MPV (9.4-12.3) fl Neut % (Auto) (34.0-67.9) % Lymph % (Auto) (21.8-53.1) % Luna % (Auto) (5.3-12.2) % Eos % (Auto) (0.8-7.0) Baso % (Auto) (0.1-1.2) % Neut # (Auto) (1.78-5.38) K/mm3 Lymph # (Auto) (1.32-3.57) K/mm3 Luna # (Auto) (0.30-0.82) K/mm3 Eos # (Auto) (0.04-0.54) K/mm3 Baso # (Auto) (0.01-0.08) K/mm3 Sodium (136-145) mEq/L Potassium (3.5-5.1) mEq/L Chloride (98-107) mEq/L Carbon Dioxide (21-32) mEq/L Anion Gap (5-15) BUN (7-18) mg/dL Creatinine (0.7-1.3) mg/dL Est Cr Clr Drug Dosing mL/min Estimated GFR (MDRD) (>60) mL/min BUN/Creatinine Ratio (14-18) Glucose (80-115) mg/dL Calcium (8.5-10.1) mg/dL Magnesium (1.8-2.4) mg/dl Total Bilirubin (0.2-1.0) mg/dL AST (15-37) U/L ALT (16-63) U/L Alkaline Phosphatase (46-116) U/L Troponin I < 0.017 (0.00-0.056) ng/mL NT-Pro-B Natriuret Pep (0-125) pg/mL Total Protein (6.4-8.2) g/dl Albumin (3.4-5.0) g/dl Globulin gm/dL Albumin/Globulin Ratio (1-2) Meds: Medications Discontinued Medications Generic Name Dose Route Start Last Admin Trade Name Freq PRN Reason Stop Dose Admin Al Hydroxide/Mg Hydroxide 30 0 ml 10/11/20 03:53 ml/ Lidocaine HCl 15 ml PO 10/11/20 03:54 ONETIME ONE Sodium Chloride 45 mls @ 40 mls/hr 10/11/20 00:45 Normal Saline IV ASDIRECTED GOPAL Iopamidol 100 ml 10/11/20 00:31 10/11/20 00:53 Iopamidol 755 Mg/Ml 100 Ml Bottle IVPUSH 10/11/20 00:32 100 ml ONETIME ONE Administration Ondansetron HCl 4 mg 10/10/20 22:31 10/10/20 22:46 Ondansetron 4 Mg/2 Ml Sdv IVPUSH 10/10/20 22:32 4 mg ONETIME ONE Administration Sodium Chloride 10 ml 10/10/20 22:29 10/10/20 22:39 Sodium Chloride 0.9% 10 Ml Syringe FLUSH 10 ml ASDIRECTED PRN Administration Keep Vein Open Sodium Chloride 10 ml 10/11/20 00:31 10/11/20 00:53 Sodium Chloride 0.9% 10 Ml Syringe FLUSH 10 ml ONETIME PRN Administration Keep Vein Open - Radiology Interpretation Free Text/Narrative:: CTA chest, IV contrast, preliminary radiology report: 1. Esophagitis 2. No pulmonary embolism 3. Nonspecific hazy opacities at the periphery of both lower lobes. Findings may be secondary to atelectasis or pneumonia Departure - Departure Time of Disposition: 05:03 Disposition: Home, Self-Care 01 Condition: Good Clinical Impression: Nasal congestion, Hypoxia Dyspnea Qualifiers: Dyspnea type: unspecified Qualified Code(s): R06.00 - Dyspnea, unspecified - Discharge Information Instructions: Shortness of Breath, Adult Referrals: Kristina Araujo PA-C [Primary Care Provider] - Forms: ED Department Discharge Additional Instructions: Return if condition worsens May resume general activity and regular diet as tolerated Continue usual medications Follow-up with primary care provider is recommended Consider toxicology and cardiology consultation for further evaluation of episodic symptoms Sepsis Event Note (ED) - Evaluation Sepsis Screening Result: No Definite Risk
[2020-10-11] MEDS ORDERED: Sodium Chloride 0.9% 10 ML Syringe FLUSH PRN (00:31)
[2020-10-11] MEDS ORDERED: Iopamidol 755 Mg/ML 100 ML Bottle IVPUSH ONE (00:31)
[2020-10-11] MEDS ORDERED: Sodium Chloride 0.9% 45 ML IV SCH (00:45)
[2020-10-11] MEDS ORDERED: Alum Hydrox/Mag Hydrox/Simeth 30 ML, Lidocaine 2% 15 ML PO ONE ×2 (03:53)
--- NOTE | 2020-10-11 07:09 | CR ---
Chest: Portable view of the chest was obtained. Comparison: Prior chest x-ray of 09/26/20. Heart size and mediastinum are within normal limits. Lungs are clear with no acute parenchymal change. Bony structures are grossly intact. Impression: 1. Nothing acute is seen on portable chest x-ray. Diagnostic code #1
--- NOTE | 2020-10-11 07:28 | CT ---
CT chest Technique: Multiple axial sections through the chest were obtained. Intravenous contrast was utilized. Study has been performed as a pulmonary angiogram protocol. Comparison: No prior chest CT is available, chest x-ray of 09/26/20 is available. Findings: Pulmonary arteries are not optimally opacified. No filling defects are definitely seen within the segmental, main pulmonary arteries or proximal subsegmental pulmonary arteries. Smaller distal pulmonary emboli could be missed. Thoracic aorta shows atherosclerotic calcification with no aneurysm. Coronary artery calcification is noted. No pericardial thickening is seen. Visualized abdominal structures show previous cholecystectomy. Small hiatal hernia was noted. Slight esophageal wall thickening is seen possibly due to reflux esophagitis. Mediastinum and hilar regions show no adenopathy or mass. Lung window settings were reviewed which show small subpleural blebs within both upper lungs. Slight parenchymal densities are seen within both lower lungs most likely representing scarring or less likely an acute process. Bone window settings were reviewed which show no acute osseous finding. Impression: 1. No findings of pulmonary emboli within the main, segmental or proximal subsegmental branches. Very distal subsegmental pulmonary emboli could be missed. 2. Small hiatal hernia as well as wall thickening suspicious for chronic reflux esophagitis. 3. Subpleural blebs within both upper lungs as well as slight parenchymal densities within both lower lungs most likely representing fibrosis or if acute could be due to minimal pneumonia or atelectasis. Diagnostic code #3 I agree with preliminary report from [facility], finalized on 10/11/20, 2:29 AM CDT, code 1
== END 2020-10-11 05:14 | disposition home or self-care (01) ==
LOC: JD.ED 22:04
DX: R06.02 Shortness of breath (principal); R09.02 Hypoxemia; R09.81 Nasal congestion; I10 Essential (primary) hypertension; Z88.0 Allergy status to penicillin; Z91.048 Other nonmedicinal substance allergy status
CPT/HCPCS: 36415; 71045; 71275; 80053; 83735; 83880; 84484; 85025; 93005; 96374; 99285; J2405; Q9967; 93010; 99284

== ENCOUNTER 2021-05-08 08:04 | Emergency (ER) | payer MEDICARE, OTHER ==
[2021-05-08] MEDS ORDERED: Sodium Chloride 0.9% 10 ML Syringe FLUSH PRN (08:25)
[2021-05-08] MEDS ORDERED: Aspirin 81 MG Tab.Chew PO ONE (08:37)
[2021-05-08] MEDS ORDERED: Nitroglycerin 0.4 MG Tab.SL SL ONE (08:37)
--- NOTE | 2021-05-08 08:53 | CR ---
Chest: Portable view of the chest was obtained. Comparison: Prior chest x-ray and chest CT dated 10/11/20. Heart size and mediastinum are normal. Lungs are clear with no acute parenchymal change. Bony structures show nothing acute for the patient's age. Impression: 1. Nothing acute is seen on portable chest x-ray. Diagnostic code #1
[2021-05-08] MEDS ORDERED: methylPREDNISolone Sodium Succinate 125 MG/2 ML SDV IVPUSH ONE (08:57)
[2021-05-08] MEDS ORDERED: Albuterol/Ipratropium 3.0-0.5 MG/3 ML Neb Soln NEB ONE (08:57)
--- NOTE | 2021-05-08 09:02 | EDM.PDOC ---
ED HPI GENERAL MEDICAL PROBLEM - General Chief Complaint: Respiratory Problem Stated Complaint: SOB\\CHEST PAIN Time Seen by Provider: 05/08/21 08:16 Source of Information: Reports: Patient, RN Notes Reviewed - History of Present Illness INITIAL COMMENTS - FREE TEXT/NARRATIVE: Pt has had nasal and sinus keith, mild cough for about a week. He states he felt fine when he first awakened this morning and than about 7 Am started getting short of breath that has worsened over the past hour. He has L chest tightness as well that does not radiate. Denies hx of CAD, diabetes or pulmonary disease. Does not smoke. He did smoke up until about 15 yrs ago. Unvaccinated for covid. Has had many prior episodes similar to this in the past year, etiology as far as he knows unclear. Left Chest Pain Score (Numeric/FACES): 8 - Related Data Allergies Allergy/AdvReac Type Severity Reaction Status Date / Time Penicillins Allergy Intermediate Rash Verified 10/10/20 22:16 pollen extracts Allergy Mild Cannot Verified 10/10/20 22:16 Remember Home Meds: Home Meds Fish Oil/[place]-3 Fatty Acids [Fish Oil 1,000 MG] 1 cap PO DAILY 08/12/17 [History] Multivitamin [Multivitamins] 1 cap PO DAILY 08/12/17 [History] ALPRAZolam [Alprazolam] 0.5 mg PO BID PRN 09/02/20 [History] Fluticasone Propionate [Flonase] 2 spray RUDY DAILY PRN 09/02/20 [History] Albuterol [Ventolin HFA] 1 puff INH Q8H PRN #1 box 09/03/20 [Rx] Azithromycin [Zithromax] 500 mg PO DAILY #3 tablet 09/03/20 [Rx] Glycopyrrolate/Formoterol Fum [Bevespi Aerosphere Inhaler] 1 puff IH BID #1 box 09/03/20 [Rx] Metoprolol Tartrate [Lopressor] 12.5 mg PO BID #30 tablet 09/03/20 [Rx] amLODIPine [Norvasc] 2.5 mg PO DAILY #30 tablet 09/03/20 [Rx] predniSONE 30 mg PO DAILY #6 tablet 09/03/20 [Rx] predniSONE 20 mg PO ASDIRECTED #15 tab 09/26/20 [Rx] Past Medical History HEENT History: Reports: Impaired Vision Cardiovascular History: Reports: High Cholesterol, Hypertension Respiratory History: Reports: Other (See Below) Other Respiratory History: Pt states this issue with his breathing has been ongoing for six months with prednisone being the only treatment that has temporarily relieved symptoms - Infectious Disease History Infectious Disease History: Reports: Chicken Pox, Mumps - Past Surgical History HEENT Surgical History: Reports: LASIK Other HEENT Surgeries/Procedures: L eye Respiratory Surgical History: Reports: None GI Surgical History: Reports: Appendectomy, Cholecystectomy Neurological Surgical History: Reports: None Musculoskeletal Surgical History: Reports: Other (See Below) Other Musculoskeletal Surgeries/Procedures:: romele Rodney higgins Social & Family History - Family History Family Medical History: No Pertinent Family History - Caffeine Use Caffeine Use: Reports: Coffee Caffeine Use Comment: 2-3 cups of coffee every morning ED ROS GENERAL - Review of Systems Review Of Systems: See Below Constitutional: Denies: Fever, Chills HEENT: Reports: Rhinitis Respiratory: Reports: Cough Cardiovascular: Reports: Chest Pain GI/Abdominal: Denies: Abdominal Pain, Nausea, Vomiting Musculoskeletal: Denies: Shoulder Pain, Arm Pain, Back Pain Skin: Reports: Diaphoresis Neurological: Reports: Dizziness ED EXAM, GENERAL - Physical Exam Exam: See Below General Appearance: Alert, Moderate Distress Eye Exam: Bilateral Eye: PERRL Throat/Mouth: Normal Inspection Head: Atraumatic Neck: Supple, Other (no JVD) Respiratory/Chest: Respiratory Distress, Rhonchi (bilat), Wheezing (mild bilat), Accessory Muscle Use (mild). No: Stridor Cardiovascular: Regular Rate, Rhythm GI/Abdominal: Soft, Non-Tender Extremities: No: Pedal Edema, Leg Pain, Increased Warmth Neurological: Alert, Oriented, No Motor/Sensory Deficits Skin Exam: Pallor, Other (diaphoretic at time of my initial exam) #1 Interpretation EKG Date: 05/08/21 Rhythm: NSR Blain: Normal P-Wave: Present QRS: RBBB ST-T: Depressed (T wave inversion and st depression V2-V6.) #2 Interpretation EKG Date: 05/08/21 Rhythm: NSR Blain: Normal P-Wave: Present QRS: RBBB ST-T: Depressed (T wave inversion and St depression V2-V6 about the same as V1) Course - Vital Signs Last Recorded V/S: Last Vital Signs Temp 96.1 F L 05/08/21 08:38 Pulse 91 05/08/21 13:14 Resp 18 05/08/21 13:14 BP 143/73 H 05/08/21 13:14 Pulse Ox 91 L 05/08/21 13:14 - Orders/Labs/Meds Orders: Active Orders 24 hr Category Date Time Status Peripheral IV Insertion Adult [OM.PC] Stat Oth 05/08/21 08:27 Ordered Labs: Laboratory Tests 05/08/21 05/08/21 05/08/21 Range/Units 08:23 08:23 08:23 WBC 8.20 (4.23-9.07) K/mm3 RBC 5.36 (4.63-6.08) M/mm3 Hgb 15.7 (13.7-17.5) gm/dl Hct 44.3 (40.1-51.0) % MCV 82.6 (79.0-92.2) fl MCH 29.3 (25.7-32.2) pg MCHC 35.4 (32.2-35.5) g/dl RDW Std Deviation 39.4 (35.1-43.9) fL Plt Count 323 (163-337) K/mm3 MPV 10.2 (9.4-12.3) fl Neut % (Auto) 35.9 (34.0-67.9) % Lymph % (Auto) 45.0 (21.8-53.1) % [place] % (Auto) 11.0 (5.3-12.2) % Eos % (Auto) 6.7 (0.8-7.0) Baso % (Auto) 0.9 (0.1-1.2) % Neut # (Auto) 2.95 (1.78-5.38) K/mm3 Lymph # (Auto) 3.69 H (1.32-3.57) K/mm3 [place] # (Auto) 0.90 H (0.30-0.82) K/mm3 Eos # (Auto) 0.55 H (0.04-0.54) K/mm3 Baso # (Auto) 0.07 (0.01-0.08) K/mm3 D-Dimer, Quantitative (0.19-0.50) mg/L Sodium 139 (136-145) mEq/L Potassium 4.0 (3.5-5.1) mEq/L Chloride 103 (98-107) mEq/L Carbon Dioxide 29 (21-32) mEq/L Anion Gap 11.0 (5-15) BUN 15 (7-18) mg/dL Creatinine 1.1 (0.7-1.3) mg/dL Est Cr Clr Drug Dosing 71.53 mL/min Estimated GFR (MDRD) > 60 (>60) mL/min BUN/Creatinine Ratio 13.6 L (14-18) Glucose 134 H (70-99) mg/dL Calcium 8.7 (8.5-10.1) mg/dL Total Bilirubin 0.8 (0.2-1.0) mg/dL AST 24 (15-37) U/L ALT 45 (16-63) U/L Alkaline Phosphatase 61 (46-116) U/L Troponin I < 0.017 (0.00-0.056) ng/mL C-Reactive Protein <0.2 (<1.0) mg/dL NT-Pro-B Natriuret Pep (0-125) pg/mL Total Protein 7.7 (6.4-8.2) g/dl Albumin 4.0 (3.4-5.0) g/dl Globulin 3.7 gm/dL Albumin/Globulin Ratio 1.1 (1-2) SARS-CoV-2 RNA (IR[facility]) (NEGATIVE) 05/08/21 05/08/21 05/08/21 Range/Units 08:23 08:23 08:23 WBC (4.23-9.07) K/mm3 RBC (4.63-6.08) M/mm3 Hgb (13.7-17.5) gm/dl Hct (40.1-51.0) % MCV (79.0-92.2) fl MCH (25.7-32.2) pg MCHC (32.2-35.5) g/dl RDW Std Deviation (35.1-43.9) fL Plt Count (163-337) K/mm3 MPV (9.4-12.3) fl Neut % (Auto) (34.0-67.9) % Lymph % (Auto) (21.8-53.1) % [place] % (Auto) (5.3-12.2) % Eos % (Auto) (0.8-7.0) Baso % (Auto) (0.1-1.2) % Neut # (Auto) (1.78-5.38) K/mm3 Lymph # (Auto) (1.32-3.57) K/mm3 [place] # (Auto) (0.30-0.82) K/mm3 Eos # (Auto) (0.04-0.54) K/mm3 Baso # (Auto) (0.01-0.08) K/mm3 D-Dimer, Quantitative 0.70 H (0.19-0.50) mg/L Sodium (136-145) mEq/L Potassium (3.5-5.1) mEq/L Chloride (98-107) mEq/L Carbon Dioxide (21-32) mEq/L Anion Gap (5-15) BUN (7-18) mg/dL Creatinine (0.7-1.3) mg/dL Est Cr Clr Drug Dosing mL/min Estimated GFR (MDRD) (>60) mL/min BUN/Creatinine Ratio (14-18) Glucose (70-99) mg/dL Calcium (8.5-10.1) mg/dL Total Bilirubin (0.2-1.0) mg/dL AST (15-37) U/L ALT (16-63) U/L Alkaline Phosphatase (46-116) U/L Troponin I (0.00-0.056) ng/mL C-Reactive Protein (<1.0) mg/dL NT-Pro-B Natriuret Pep 53 (0-125) pg/mL Total Protein (6.4-8.2) g/dl Albumin (3.4-5.0) g/dl Globulin gm/dL Albumin/Globulin Ratio (1-2) SARS-CoV-2 RNA (IR[facility]) Negative (NEGATIVE) 05/08/21 Range/Units 10:35 WBC (4.23-9.07) K/mm3 RBC (4.63-6.08) M/mm3 Hgb (13.7-17.5) gm/dl Hct (40.1-51.0) % MCV (79.0-92.2) fl MCH (25.7-32.2) pg MCHC (32.2-35.5) g/dl RDW Std Deviation (35.1-43.9) fL Plt Count (163-337) K/mm3 MPV (9.4-12.3) fl Neut % (Auto) (34.0-67.9) % Lymph % (Auto) (21.8-53.1) % [place] % (Auto) (5.3-12.2) % Eos % (Auto) (0.8-7.0) Baso % (Auto) (0.1-1.2) % Neut # (Auto) (1.78-5.38) K/mm3 Lymph # (Auto) (1.32-3.57) K/mm3 [place] # (Auto) (0.30-0.82) K/mm3 Eos # (Auto) (0.04-0.54) K/mm3 Baso # (Auto) (0.01-0.08) K/mm3 D-Dimer, Quantitative (0.19-0.50) mg/L Sodium (136-145) mEq/L Potassium (3.5-5.1) mEq/L Chloride (98-107) mEq/L Carbon Dioxide (21-32) mEq/L Anion Gap (5-15) BUN (7-18) mg/dL Creatinine (0.7-1.3) mg/dL Est Cr Clr Drug Dosing mL/min Estimated GFR (MDRD) (>60) mL/min BUN/Creatinine Ratio (14-18) Glucose (70-99) mg/dL Calcium (8.5-10.1) mg/dL Total Bilirubin (0.2-1.0) mg/dL AST (15-37) U/L ALT (16-63) U/L Alkaline Phosphatase (46-116) U/L Troponin I < 0.017 (0.00-0.056) ng/mL C-Reactive Protein (<1.0) mg/dL NT-Pro-B Natriuret Pep (0-125) pg/mL Total Protein (6.4-8.2) g/dl Albumin (3.4-5.0) g/dl Globulin gm/dL Albumin/Globulin Ratio (1-2) SARS-CoV-2 RNA ([place]) (NEGATIVE) Meds: Medications Discontinued Medications Generic Name Dose Route Start Last Admin Trade Name Freq PRN Reason Stop Dose Admin Albuterol/Ipratropium 3 ml 05/08/21 08:57 05/08/21 09:52 Albuterol/Ipratropium 3.0-0.5 Mg/3 Ml Neb Soln NEB 05/08/21 08:58 3 ml ONETIME ONE Administration Aspirin 324 mg 05/08/21 08:37 05/08/21 08:52 Aspirin 81 Mg Tab.Chew PO 05/08/21 08:38 324 mg ONETIME ONE Administration Sodium Chloride 100 mls @ 60 mls/hr 05/08/21 09:15 05/08/21 10:25 Normal Saline IV 60 mls/hr ASDIRECTED GOPAL Administration Sodium Chloride 1,000 mls @ 999 mls/hr 05/08/21 09:15 05/08/21 09:32 Normal Saline IV 999 mls/hr ONETIME GOPAL Administration Iopamidol 100 ml 05/08/21 09:10 05/08/21 10:25 Iopamidol 755 Mg/Ml 100 Ml Bottle IVPUSH 05/08/21 09:11 100 ml ONETIME ONE Administration Methylprednisolone Sodium Succinate 125 mg 05/08/21 08:57 05/08/21 09:32 Methylprednisolone Sodium Succinate 125 Mg/2 Ml Sdv IVPUSH 05/08/21 08:58 125 mg ONETIME ONE Administration Nitroglycerin 0.4 mg 05/08/21 08:37 05/08/21 08:52 Nitroglycerin 0.4 Mg Tab.Sl SL 05/08/21 08:38 0.4 mg ONETIME ONE Administration Ondansetron HCl 4 mg 05/08/21 09:12 05/08/21 09:32 Ondansetron 4 Mg/2 Ml Sdv IVPUSH 05/08/21 09:13 4 mg ONETIME ONE Administration Sodium Chloride 10 ml 05/08/21 08:25 05/08/21 08:48 Sodium Chloride 0.9% 10 Ml Syringe FLUSH 10 ml ASDIRECTED PRN Administration Keep Vein Open Sodium Chloride 10 ml 05/08/21 09:10 05/08/21 09:32 Sodium Chloride 0.9% 10 Ml Syringe FLUSH 05/08/21 09:11 10 ml ONETIME ONE Administration - Re-Assessments/Exams Free Text/Narrative Re-Assessment/Exam: 05/08/21 08:30. EKG shows RBB, T wave inversion and st depression V2-4 concerning for post. infarct. Have ordered 324 ASA, 0.4 ntg SL. sats in the low 90's with 6 L N. 09:00. D Dimer elevated at 0.7, CTPA orderd. discomfort somewhat less, pain still does not radiate. He had dropped his sats so now on 15 L NRB, sats mid 90's., still wheezing, tachypnic, solumedrol 125 mg and duoneb ordered. 09:35. Discomfort is gone, breathing comfortably 4 L NC, no longer diaphoretic . Trop neg. Will repeat EKG. 10:15. Resting and breathing comfortably, he has good skin color, much improved from arrival. 05/08/21 12:22. Repeat trop is also noraml. sats 91 to 92 % room air. His difficulty breathing is completely gone. His chest discomfort resolved several hours ago. He wants to go home and feels totally up to doing that. He has given me more information. He states this is about his 9th or 10th episode of this nature in the past 7 months. He has seen Cardiology in the past, has had 2 prior angiograms in the past few years that showed "no blockage" or at least no significant blockage. He was referred to see a Part Maker after a hospital admission this past summer who "ruled out significant pulmonary disease". When these occur he has often driven to our ED parking lot to be close to the ED if it gets "really bad". He has been able to wait it out at least a few times this fall where after a few hrs his sx subside and he is back to normal. Beyond the severity of his sx observed today in the ED and hx of frequent severe attacks of difficulty breathing are 1: His EKG has changed from EKG on record of last October 6 months ago. He now has a RBB and now has T wave inversion and ST depression V2-V4. [address] shows continued hilar and mediastinal adenopathy that has not diminished in size from prior Chest CT. See Radiology report for details. We have made and appointment for him to see Dr Mendieta, Int. Med. tomorrow afternoon at this clinic. He is going to need ongoing care, further evaluation and treatment to better sort this out. Departure - Departure Time of Disposition: 12:35 Disposition: Home, Self-Care 01 Condition: Fair Clinical Impression: Hypoxia, Lymphadenopathy, mediastinal Dyspnea Qualifiers: Dyspnea type: unspecified Qualified Code(s): R06.00 - Dyspnea, unspecified - Discharge Information Instructions: Hypoxia, Shortness of Breath, Adult, [id number] Referrals: Chanel Escobedo, COMMODITY ANALYST [Primary Care Provider] - Forms: ED Department Discharge Additional Instructions: Continue current meds for now. See Dr Mendieta at our [facility] medical clinic 1:40 PM tomorrow. He will have access to the records of today's and prior ED visits. Return to ED as needed. Sepsis Event Note (ED) - Evaluation Sepsis Screening Result: No Definite Risk - Focused Exam Vital Signs: Vital Signs Temp Pulse Resp BP BP Pulse Ox Pulse Ox 05/08/21 13:14 91 18 143/73 H 91 L 05/08/21 12:00 85 13 147/89 H 93 L 05/08/21 11:30 82 18 148/84 H 90 L 05/08/21 11:00 93 18 125/75 91 L 05/08/21 10:30 94 15 149/71 H 92 L 05/08/21 10:00 96 19 146/78 H 91 L 05/08/21 09:53 87 L 05/08/21 09:30 96 19 175/81 H 92 L 05/08/21 09:00 97 05/08/21 08:52 166/82 H 05/08/21 08:45 87 L 05/08/21 08:38 96.1 F L 99 20 160/87 H 85 L - My Orders Last 24 Hours: My Active Orders 05/08/21 08:27 Peripheral IV Insertion Adult [OM.PC] Stat - Assessment/Plan Last 24 Hours: My Active Orders 05/08/21 08:27 Peripheral IV Insertion Adult [OM.PC] Stat
[2021-05-08] MEDS ORDERED: Sodium Chloride 0.9% 10 ML Syringe FLUSH ONE (09:10)
[2021-05-08] MEDS ORDERED: Iopamidol 755 Mg/ML 100 ML Bottle IVPUSH ONE (09:10)
[2021-05-08] MEDS ORDERED: Ondansetron 4 MG/2 ML SDV IVPUSH ONE (09:12)
[2021-05-08] MEDS ORDERED: Sodium Chloride 0.9% 100 ML IV SCH (09:15)
[2021-05-08] MEDS ORDERED: Sodium Chloride 0.9% 1,000 ML IV SCH (09:15)
--- NOTE | 2021-05-08 10:04 | CT ---
CT chest Technique: Multiple axial sections were obtained from above the lung apices inferiorly through the lung bases. Intravenous contrast was utilized. Study has been performed as a pulmonary angiogram protocol. Comparison: Prior chest x-ray of 05/08/[address] chest study performed as an angiogram of 10/11/20. Findings: Pulmonary arteries are well opacified. No filling defects are seen to indicate pulmonary embolism. Thoracic aorta shows no aneurysm. Mediastinal lymph nodes are seen. These are more numerous than usually seen. Focal increased lymph node is noted within the right hilar region measuring 2.5 cm which is stable from prior CT exam. Minimal pericardial effusion is seen within the dependent portions most likely within normal limits. Visualized upper abdominal structures show prior cholecystectomy. Prior study showed a hiatal hernia which is smaller on current exam. Lung window settings were reviewed which show small subpleural blebs within both upper lungs. Small pleural-based nodule is noted within the right upper lung which remains stable. Minimal parenchymal density is seen within the posterior right lung which is stable. Slight increased density is seen more inferiorly within both posterior lungs which is also stable. Bone window settings were reviewed. Slight degenerative change scattered within the spine is seen. No acute osseous abnormality is appreciated. Impression: 1. No findings of pulmonary embolism are seen. 2. Slightly prominent lymph nodes within the mediastinum and right hilar region. These have not decreased in size from prior exam and difficult to exclude early lymphoproliferative neoplasm. Consider biopsy of the right hilar region to further evaluate. 3. Emphysematous change is seen within both lungs. Mild scattered area of fibrosis which is stable from prior chest CT is seen as described above. 4. Decrease in size of previous hiatal hernia. Diagnostic code #9
[2021-05-08 13:15] VITALS: BP 143/73; PULSE 91
== END 2021-05-08 13:16 | disposition home or self-care (01) ==
LOC: JD.ED 08:04
DX: R06.02 Shortness of breath (principal); R09.02 Hypoxemia; R59.0 Localized enlarged lymph nodes; I10 Essential (primary) hypertension; Z88.0 Allergy status to penicillin; Z91.09 Other allergy status, other than to drugs and biological substances; Z20.822 Contact with and (suspected) exposure to COVID-19
CPT/HCPCS: 36415; 71045; 71275; 80053; 83880; 84484; 85025; 85379; 86140; 93005; 94640; 96374; 96375; 99285; A9270; J2405; J2930; J7030; Q9967; U0002; J7620-GY

== ENCOUNTER 2021-09-12 21:35 | Emergency (ER) | payer MEDICARE, OTHER ==
[2021-09-12] MEDS ORDERED: Iopamidol 755 Mg/ML 100 ML Bottle IVPUSH ONE (23:21)
[2021-09-12] MEDS ORDERED: Sodium Chloride 0.9% 10 ML SDV FLUSH ONE (23:22)
[2021-09-12] MEDS ORDERED: Sodium Chloride 0.9% 100 ML IV SCH (23:30)
[2021-09-13 00:10] VITALS: BP 166/72; PULSE 95
== END 2021-09-13 00:51 | disposition home or self-care (01) ==
LOC: JD.ED 21:35
DX: R09.02 Hypoxemia (principal); R06.02 Shortness of breath; E78.00 Pure hypercholesterolemia, unspecified; I10 Essential (primary) hypertension; E66.9 Obesity, unspecified; Z68.35 Body mass index [BMI] 35.0-35.9, adult; Z87.891 Personal history of nicotine dependence; Z88.0 Allergy status to penicillin; Z91.048 Other nonmedicinal substance allergy status; Z20.822 Contact with and (suspected) exposure to COVID-19; Z28.310 Unvaccinated for COVID-19
CPT/HCPCS: 36415; 36600; 71046; 71046-26; 71275; 71275-26; 80053; 82803; 83605; 83880; 84484; 85007; 85027; 85379; 87040; 93005; 93010; 99284; 99285-25; J3490; Q9967; U0002